=== PATIENT | female | born 1985 | race Two or more races ===

== ENCOUNTER 2016-10-18 10:54 | Emergency (ER) | payer MEDICAID ==
[2016-10-18 11:06] VITALS: RESP 16; TEMP 98.2
[2016-10-18] MEDS ORDERED: NS 1,000 ML IV ONE (11:21)
[2016-10-18] MEDS ORDERED: ONDANSETRON 4 MG/2 ML VIAL IVP ONE (11:21)
[2016-10-18 11:49] LABS: % IMMATURE GRANULYOCYTES 0.3 % (0.0-1.1); ABSOLUTE IMMATURE GRANULOCYTES 0.03 10^3/uL (0.00-0.10); ADD DIFF? NO; ADD MORPH? YES; ADD SCAN? NO; ATYPICAL LYMPHOCYTE FLAG 20 (0-99); FRAGMENT RBC FLAG 80 (0-99); HEMOGLOBIN 8.7 g/dL (12.6-16.3); LEFT SHIFT FLG 0 (0-99); LIPEMIA HEMOLYSIS FLAG 70 (0-99); MEAN CELL HEMOGLOBIN 20.1 pg (27.9-34.1); MEAN PLATELET VOLUME 11.1 fL (8.7-11.7); PLATELET CLUMPS FLAG 30 (0-99); PLATELET COUNT 333 10^3/uL (150-400); RED BLOOD CELL COUNT 4.33 10^6/uL (4.18-5.33)
[2016-10-18 11:51] LABS: COLOR PALE YELLOW; LEUKOCYTE ESTERASE,URINE NEGATIVE (NEGATIVE); NITRITE,URINE NEGATIVE (NEGATIVE)
[2016-10-18 11:52] LABS: MEAN CELL VOLUME 69.3 fL (81.5-99.8); RED CELL DISTRIBUTION WIDTH 20.6 % (11.5-15.2)
[2016-10-18 12:02] LABS: ALANINE AMINOTRANSFERASE 24 IU/L (9-52); ALBUMIN 4.3 g/dL (3.5-5.0); ALKALINE PHOSPHATASE 51 IU/L (38-126); ANION GAP 12 mEq/L (8-16); ASPARTATE AMINOTRANSFERASE 21 IU/L (14-46); BILIRUBIN,TOTAL 0.3 mg/dL (0.1-1.4); CALCIUM 9.1 mg/dL (8.5-10.4); CARBON DIOXIDE 23 mEq/l (22-31); CHLORIDE 107 mEq/L (97-110); CREATININE 0.7 mg/dL (0.6-1.0); GLOMERULAR FILTRATION RATE > 60; GLUCOSE 86 mg/dL (70-100); POTASSIUM 3.9 mEq/L (3.5-5.2); SODIUM 142 mEq/L (134-144); TOTAL PROTEIN 8.1 g/dL (6.3-8.2)
--- NOTE | 2016-10-18 12:36 | EDPHY ---
H & P Time Seen by Provider: 10/18/16 12:33 HPI/ROS: HPI: This is a pleasant 31-year-old female who presents with Chief Complaint: Nausea vomiting Location: Abdomen Quality: Nausea Duration: 2-3 weeks Signs and Symptoms: No fever, positive nausea, positive vomiting, no diarrhea, no constipation, no vaginal discharge, no vaginal bleeding, no dysuria, no chest pain, no palpitations, no dysphagia, no indigestion Timing: Intermittent Severity: Mild Context: Last menstrual period 1 month ago. She has 2 living children as had 2 C-sections as well as a bilateral tubal ligation. She states that food just does not taste well to her. And that she has been suffering from nausea. Only had 1 episode of vomiting over the last 2-3 weeks. Adamantly denies abdominal pain to me. Had 1 episode of loose stool yesterday and today. No recent antibiotic use. No recent foreign travel. Modifying Factors: Did not call a primary care provider or tried anything for the symptoms Comment: ROS: Eyes: No blurred vision Respiratory: No shortness of breath, no cough Cardiovascular: No chest pain Gastrointestinal: + nausea, + vomiting no diarrhea Genitourinary: No dysuria Extremities: No myalgias Neurologic: No weakness, no numbness Skin: No rashes Hematologic: No bruising, no bleeding MEDICAL/SURGICAL HISTORY: x 2. Social History: . Smoking Status: Never smoked Physical Exam: CONSTITUTIONAL: Extremely well-appearing adult female, awake and alert , no obvious distress HEENT: Atraumatic and normocephalic, PERRL, EOMI. Tympanic membranes clear. . Oropharynx clear, no exudate and moist pink mucosa. Airway patent. No lymphadenopathy. No meningismus. Cardiovascular: Normal S1/S2, regular rate, regular rhythm, without murmur rub or gallop. PULMONARY/CHEST: Symmetrical and nontender. Clear to auscultation bilaterally Good air movement. No accessory muscle usage. ABDOMEN: Soft, nondistended, mild nonfocal tenderness, no rebound, no guarding , no peritoneal signs, no masses or organomegaly. No CVAT. EXTREMITIES: 2/2 pulses, no deformities, no clubbing, no cyanosis or edema. NEUROLOGICAL: no focal neuro deficits. GCS 15. SKIN: Warm and dry, no erythema. no rash. Good capillary refill. Constitutional: Initial Vital Signs Temperature (C) 36.8 C 10/18/16 11:04 Heart Rate 78 10/18/16 11:04 Respiratory Rate 16 10/18/16 11:04 Blood Pressure 122/73 H 10/18/16 11:04 O2 Sat (%) 98 10/18/16 11:04 O2 Delivery Mode Room Air Allergies/Adverse Reactions: No Known Allergies Allergy (Unverified 04/16/14 17:10) Home Medications: Medication Instructions Recorded Ondansetron Odt [Zofran Odt 4 mg 4 mg PO Q4 PRN #12 tab 10/18/16 (*)] Medical Decision Making - Diagnostics Imaging Results: Imaging Impressions Abdomen Ultrasound 10/18/16 11:27 Impression: Normal study. Findings were discussed with Lorena Wei PA-C at 12:13, on 10/18/2016. ED Course/Re-evaluation: labs, UA, Urine , RUQ US< IVF, IV medications ordered urine negative Right upper quadrant ultrasound does not show any gallbladder stone sludge common bile duct diameter is normal. Labs unremarkable UA does not show infection No signs of pancreatitis, gastroparesis, cholelithiasis, cholecystitis, dehydration, electrolyte imbalance, sepsis Advised follow up with primary care for care provider in 2-3 days if symptoms persist Patient's nausea was completely resolved with Zofran. No indication for further invasive workup. Differential Diagnosis: Abdominal pain in a female including but not limited to ovarian cyst, pelvic inflammatory disease, ovarian torsion, urinary tract infection, and appendicitis. - Data Points Laboratory Results: Laboratory Results 10/18/16 11:30 10/18/16 11:30 10/18/16 10/18/16 10/18/16 11:30 11:30 11:30 WBC 8.81 10^3/uL 10^3/uL (3.80-9.50) RBC 4.33 10^6/uL 10^6/uL (4.18-5.33) Hgb 8.7 g/dL L g/dL (12.6-16.3) Hct 30.0 % L % (38.0-47.0) MCV 69.3 fL L fL (81.5-99.8) MCH 20.1 pg L pg (27.9-34.1) MCHC 29.0 g/dL L g/dL (32.4-36.7) RDW 20.6 % H % (11.5-15.2) Plt Count 333 10^3/uL 10^3/uL (150-400) MPV 11.1 fL fL (8.7-11.7) Neut % (Auto) 67.5 % % (39.3-74.2) Lymph % (Auto) 25.4 % % (15.0-45.0) [place] % (Auto) 6.1 % % (4.5-13.0) Eos % (Auto) 0.5 % L % (0.6-7.6) Baso % (Auto) 0.2 % L % (0.3-1.7) Nucleat RBC Rel Count 0.0 % % (0.0-0.2) Absolute Neuts (auto) 5.94 10^3/uL 10^3/uL (1.70-6.50) Absolute Lymphs (auto) 2.24 10^3/uL 10^3/uL (1.00-3.00) Absolute Monos (auto) 0.54 10^3/uL 10^3/uL (0.30-0.80) Absolute Eos (auto) 0.04 10^3/uL 10^3/uL (0.03-0.40) Absolute Basos (auto) 0.02 10^3/uL 10^3/uL (0.02-0.10) Absolute Nucleated RBC 0.00 10^3/uL 10^3/uL (0-0.01) Immature Gran % 0.3 % % (0.0-1.1) Immature Gran # 0.03 10^3/uL 10^3/uL (0.00-0.10) Platelet Estimate Pending Smear Review By Pending ABG Lactic Acid Sodium 142 mEq/L mEq/L (134-144) Potassium 3.9 mEq/L mEq/L (3.5-5.2) Chloride 107 mEq/L mEq/L (97-110) Carbon Dioxide 23 mEq/l mEq/l (22-31) Anion Gap 12 mEq/L mEq/L (8-16) BUN 15 mg/dL mg/dL (7-23) Creatinine 0.7 mg/dL mg/dL (0.6-1.0) Estimated GFR > 60 Glucose 86 mg/dL mg/dL (70-100) Calcium 9.1 mg/dL mg/dL (8.5-10.4) Total Bilirubin 0.3 mg/dL mg/dL (0.1-1.4) AST 21 IU/L IU/L (14-46) ALT 24 IU/L IU/L (9-52) Alkaline Phosphatase 51 IU/L IU/L (38-126) Total Protein 8.1 g/dL g/dL (6.3-8.2) Albumin 4.3 g/dL g/dL (3.5-5.0) Lipase 107 IU/L IU/L (23-300) Urine Color PALE YELLOW Urine Appearance CLEAR Urine pH 7.0 (5.0-7.5) Ur Specific [place] 1.005 (1.002-1.030) Urine Protein NEGATIVE (NEGATIVE) Urine Ketones NEGATIVE (NEGATIVE) Urine Blood NEGATIVE (NEGATIVE) Urine Nitrate NEGATIVE (NEGATIVE) Urine Bilirubin NEGATIVE (NEGATIVE) Urine Urobilinogen NEGATIVE EU EU (0.2-1.0) Ur Leukocyte Esterase NEGATIVE (NEGATIVE) Urine Glucose NEGATIVE (NEGATIVE) 10/18/16 11:30 WBC RBC Hgb Hct MCV MCH MCHC RDW Plt Count MPV Neut % (Auto) Lymph % (Auto) [place] % (Auto) Eos % (Auto) Baso % (Auto) Nucleat RBC Rel Count Absolute Neuts (auto) Absolute Lymphs (auto) Absolute Monos (auto) Absolute Eos (auto) Absolute Basos (auto) Absolute Nucleated RBC Immature Gran % Immature Gran # Platelet Estimate Smear Review By ABG Lactic Acid 0.7 mmol/L mmol/L (0.5-1.6) Sodium Potassium Chloride Carbon Dioxide Anion Gap BUN Creatinine Estimated GFR Glucose Calcium Total Bilirubin AST ALT Alkaline Phosphatase Total Protein Albumin Lipase Urine Color Urine Appearance Urine pH Ur Specific [place] Urine Protein Urine Ketones Urine Blood Urine Nitrate Urine Bilirubin Urine Urobilinogen Ur Leukocyte Esterase Urine Glucose Medications Given: Discontinued Medications Sodium Chloride (Ns) 1,000 mls @ 0 mls/hr IV EDNOW ONE; Wide Open PRN Reason: Protocol Stop: 10/18/16 11:22 Last Admin: 10/18/16 11:35 Dose: 1,000 mls Ondansetron HCl (Zofran) 4 mg IVP EDNOW ONE Stop: 10/18/16 11:22 Last Admin: 10/18/16 11:36 Dose: 4 mg Departure - Departure Disposition: Home, Routine, Self-Care Clinical Impression: Nausea alone Condition: Good Instructions: Acute Nausea and Vomiting (ED) Referrals: [facility] [Other] - 2-3 days, if not improved Prescriptions: Ondansetron Odt [Zofran Odt 4 mg (*)] 4 mg PO Q4 PRN #12 tab PRN Reason: Nausea/Vomiting, Use 1st
[2016-10-18 12:42] LABS: ELLIPTOCYTES 1+; HYPOCHROMIA 2+; KERATOCYTES 1+; MICROCYTES 2+; POLYCHROMASIA 1+
[2016-10-18 12:43] LABS: PLATELET ESTIMATE ADEQUATE (ADEQ)
[2016-10-18 12:51] VITALS: BP 100/59; PULSE 68; O2SAT 100
== END 2016-10-18 12:51 | disposition home or self-care (01) ==
DX: R11.0 Nausea (principal); E86.9 Volume depletion, unspecified
CPT/HCPCS: 96374; J2405

== ENCOUNTER 2016-12-01 06:46 | Emergency (ER) | payer MEDICAID ==
[2016-12-01 06:51] VITALS: RESP 16; TEMP 99
--- NOTE | 2016-12-01 07:32 | EDPHY ---
H & P Time Seen by Provider: 12/01/16 07:31 HPI/ROS: Chief complaint. Abdominal pain HPI. 31-year-old female left lower quadrant pain that started this morning. Vomiting x1. The pain is described as sharp left lower quadrant radiating through to her back. She notes burning with urination. She was well yesterday. It hurts to walk. No chest discomfort trouble breathing. No similar symptoms previously. No diarrhea ROS Constitutional. no fever/chills, no weakness Eyes. no problems with vision ENT. no sore throat, no nasal drainage Cardiovascular. no chest pain Respiratory. no shortness of breath, no cough Abdominal. Left lower quadrant abdominal pain with vomiting . Painful urination MS. no calf pain/swelling, no neck/back pain, no joint pain Skin. no rash Lymph. no swollen glands Neuro. no headache, no dizziness, no difficulty walking or with speech Past Medical/Surgical History: Past medical history is significant for tubal ligation Social History: nonsmoker no alcohol Smoking Status: Never smoked Physical Exam: General Appearance: Alert well-developed female mild distress vital signs significant for initial heart rate 101 Eyes: Pupils equal and round no pallor or injection. ENT, Mouth: Mucous membranes are moist. Respiratory: There are no retractions, lungs are clear to auscultation. Cardiovascular: Regular rate and rhythm. Gastrointestinal: Abdomen is soft with mild tenderness in the left lower quadrant. No masses. No organomegaly. Mild left flank pain Neurological: Awake and alert, sensory and motor exams grossly normal. Skin: Warm and dry, no rashes. Musculoskeletal: Neck is supple nontender. Extremities symmetrical, full range of motion. Psychiatric: Patient is oriented X 3, there is no agitation. Constitutional: Initial Vital Signs Temperature (C) 37.2 C 12/01/16 06:48 Heart Rate 101 H 12/01/16 06:48 Respiratory Rate 16 12/01/16 06:48 Blood Pressure 114/74 12/01/16 06:48 O2 Sat (%) 95 12/01/16 06:48 O2 Delivery Mode Room Air Allergies/Adverse Reactions: shellfish derived Allergy (Verified 12/01/16 06:47) Home Medications: Medication Instructions Recorded NK [No Known Home Meds] 12/01/16 Medical Decision Making - Diagnostics Imaging Results: Imaging Impressions Abdomen/Pelvis Ultrasound 12/01/16 07:44 Impression: Normal renal ultrasound. Findings discussed with PATRICIA ORR 12/01/2016 at 8:54. Pelvic/Renal Ultrasound 12/01/16 07:44 Impression: Normal pelvic ultrasound. Findings discussed with PATRICIA ORR 12/01/2016 at 8:54. Ultrasound of pelvis and kidney reviewed by me and discussed with Dr. Mahajan are normal Procedures: IV normal saline. Fentanyl for pain. Zofran for nausea ED Course/Re-evaluation: Re-evaluation 9:10 a.m.. Patient is stable. She and I discussed imaging and lab results. We discussed treatment plan including criteria for return importance of follow-up and further evaluation. She expresses understanding and agreement Abdomen is reexamined it is soft and nontender. No evidence for acute abdomen. Differential Diagnosis: I considered urinary tract infection, pyelonephritis, ectopic , kidney stone, ovarian torsion or ovarian cyst. The etiology of the patient's complaint is not clear as the above differential appears to be normal - Data Points Laboratory Results: Laboratory Results 12/01/16 07:20 12/01/16 07:20 12/01/16 12/01/16 12/01/16 07:20 07:20 07:20 WBC RBC Hgb Hct MCV MCH MCHC RDW Plt Count MPV Neut % (Auto) Lymph % (Auto) [place] % (Auto) Eos % (Auto) Baso % (Auto) Nucleat RBC Rel Count Absolute Neuts (auto) Absolute Lymphs (auto) Absolute Monos (auto) Absolute Eos (auto) Absolute Basos (auto) Absolute Nucleated RBC Immature Gran % Immature Gran # Platelet Estimate Hypochromasia Microcytic Cells Elliptocytes Rouleaux Smear Review By Sodium 141 mEq/L mEq/L (134-144) Potassium 4.1 mEq/L mEq/L (3.5-5.2) Chloride 107 mEq/L mEq/L (97-110) Carbon Dioxide 22 mEq/l mEq/l (22-31) Anion Gap 12 mEq/L mEq/L (8-16) BUN 15 mg/dL mg/dL (7-23) Creatinine 0.7 mg/dL mg/dL (0.6-1.0) Estimated GFR > 60 Glucose 99 mg/dL mg/dL (70-100) Calcium 9.1 mg/dL mg/dL (8.5-10.4) Beta HCG, Qual NEGATIVE Urine Color YELLOW Urine Appearance HAZY Urine pH 5.0 (5.0-7.5) Ur Specific [place] 1.027 (1.002-1.030) Urine Protein NEGATIVE (NEGATIVE) Urine Ketones NEGATIVE (NEGATIVE) Urine Blood NEGATIVE (NEGATIVE) Urine Nitrate NEGATIVE (NEGATIVE) Urine Bilirubin NEGATIVE (NEGATIVE) Urine Urobilinogen 2.0 EU H EU (0.2-1.0) Ur Leukocyte Esterase NEGATIVE (NEGATIVE) Urine RBC 1-3 /hpf /hpf (0-3) Urine WBC 1-3 /hpf /hpf (0-3) Ur Epithelial Cells TRACE /lpf /lpf (NONE-1+) Urine Mucus 4+ /lpf H /lpf (NONE-1+) Urine Glucose NEGATIVE (NEGATIVE) 12/01/16 07:20 WBC 10.33 10^3/uL H 10^3/uL (3.80-9.50) RBC 4.58 10^6/uL 10^6/uL (4.18-5.33) Hgb 8.9 g/dL L g/dL (12.6-16.3) Hct 30.9 % L % (38.0-47.0) MCV 67.5 fL L fL (81.5-99.8) MCH 19.4 pg L pg (27.9-34.1) MCHC 28.8 g/dL L g/dL (32.4-36.7) RDW 19.5 % H % (11.5-15.2) Plt Count 342 10^3/uL 10^3/uL (150-400) MPV 11.3 fL fL (8.7-11.7) Neut % (Auto) 76.6 % H % (39.3-74.2) Lymph % (Auto) 12.8 % L % (15.0-45.0) [place] % (Auto) 8.5 % % (4.5-13.0) Eos % (Auto) 1.3 % % (0.6-7.6) Baso % (Auto) 0.5 % % (0.3-1.7) Nucleat RBC Rel Count 0.0 % % (0.0-0.2) Absolute Neuts (auto) 7.92 10^3/uL H 10^3/uL (1.70-6.50) Absolute Lymphs (auto) 1.32 10^3/uL 10^3/uL (1.00-3.00) Absolute Monos (auto) 0.88 10^3/uL H 10^3/uL (0.30-0.80) Absolute Eos (auto) 0.13 10^3/uL 10^3/uL (0.03-0.40) Absolute Basos (auto) 0.05 10^3/uL 10^3/uL (0.02-0.10) Absolute Nucleated RBC 0.00 10^3/uL 10^3/uL (0-0.01) Immature Gran % 0.3 % % (0.0-1.1) Immature Gran # 0.03 10^3/uL 10^3/uL (0.00-0.10) Platelet Estimate ADEQUATE (ADEQ) Hypochromasia 2+ H Microcytic Cells 2+ H Elliptocytes 1+ H Rouleaux PRESENT H Smear Review By Pending Sodium Potassium Chloride Carbon Dioxide Anion Gap BUN Creatinine Estimated GFR Glucose Calcium Beta HCG, Qual Urine Color Urine Appearance Urine pH Ur Specific [place] Urine Protein Urine Ketones Urine Blood Urine Nitrate Urine Bilirubin Urine Urobilinogen Ur Leukocyte Esterase Urine RBC Urine WBC Ur Epithelial Cells Urine Mucus Urine Glucose Medications Given: Discontinued Medications Fentanyl (Sublimaze) 100 mcg IVP EDNOW ONE Stop: 12/01/16 07:44 Last Admin: 12/01/16 07:54 Dose: 100 mcg Sodium Chloride (Ns) 1,000 mls @ 0 mls/hr IV EDNOW ONE; Wide Open PRN Reason: Protocol Stop: 12/01/16 07:44 Last Admin: 12/01/16 07:54 Dose: 1,000 mls Ondansetron HCl (Zofran) 4 mg IVP EDNOW ONE Stop: 12/01/16 07:44 Last Admin: 12/01/16 07:54 Dose: 4 mg Departure - Departure Disposition: Home, Routine, Self-Care Clinical Impression: Abdominal pain Condition: Good Instructions: Acute Abdominal Pain (ED) Additional Instructions: Easy activity today. Ibuprofen 600 mg every 6 hours for discomfort. Hydrocodone in addition if necessary. Return for worsening pain, fever, vomiting. Recheck in 1 day if not improving Referrals: [facility] [Other] - 1 day, if not improved Stand Alone Forms: Work Excuse
[2016-12-01] MEDS ORDERED: ONDANSETRON 4 MG/2 ML VIAL IVP ONE (07:43)
[2016-12-01] MEDS ORDERED: NS 1,000 ML IV ONE (07:43)
[2016-12-01] MEDS ORDERED: fentaNYL 100 MCG/2 ML INJ IVP ONE (07:43)
[2016-12-01 07:53] LABS: % IMMATURE GRANULYOCYTES 0.3 % (0.0-1.1); ABSOLUTE IMMATURE GRANULOCYTES 0.03 10^3/uL (0.00-0.10); ADD DIFF? NO; ADD MORPH? YES; ADD SCAN? NO; ATYPICAL LYMPHOCYTE FLAG 20 (0-99); FRAGMENT RBC FLAG 60 (0-99); HEMATOCRIT 30.9 % (38.0-47.0); HEMOGLOBIN 8.9 g/dL (12.6-16.3); LEFT SHIFT FLG 0 (0-99); LIPEMIA HEMOLYSIS FLAG 70 (0-99); MEAN CELL HEMOGLOBIN 19.4 pg (27.9-34.1); MEAN PLATELET VOLUME 11.3 fL (8.7-11.7); PLATELET CLUMPS FLAG 20 (0-99); PLATELET COUNT 342 10^3/uL (150-400); RED BLOOD CELL COUNT 4.58 10^6/uL (4.18-5.33); RED CELL DISTRIBUTION WIDTH 19.5 % (11.5-15.2)
[2016-12-01 07:54] LABS: MEAN CELL HEMOGLOBIN CONCENTR. 28.8 g/dL (32.4-36.7); MEAN CELL VOLUME 67.5 fL (81.5-99.8)
[2016-12-01 08:00] LABS: ANION GAP 12 mEq/L (8-16); CALCIUM 9.1 mg/dL (8.5-10.4); CARBON DIOXIDE 22 mEq/l (22-31); CHLORIDE 107 mEq/L (97-110); CREATININE 0.7 mg/dL (0.6-1.0); GLOMERULAR FILTRATION RATE > 60; GLUCOSE 99 mg/dL (70-100); POTASSIUM 4.1 mEq/L (3.5-5.2); SODIUM 141 mEq/L (134-144)
[2016-12-01 08:03] LABS: COLOR YELLOW; LEUKOCYTE ESTERASE,URINE NEGATIVE (NEGATIVE); NITRITE,URINE NEGATIVE (NEGATIVE)
[2016-12-01 08:06] LABS: MUCUS 4+ /lpf (NONE-1+)
[2016-12-01 08:27] LABS: ELLIPTOCYTES 1+; HYPOCHROMIA 2+; MICROCYTES 2+
[2016-12-01 08:28] LABS: PLATELET ESTIMATE ADEQUATE (ADEQ); ROULEAUX PRESENT
[2016-12-01 08:54] VITALS: BP 106/59
[2016-12-01 09:31] VITALS: PULSE 79; O2SAT 97
== END 2016-12-01 09:33 | disposition home or self-care (01) ==
DX: R10.32 Left lower quadrant pain (principal); E86.9 Volume depletion, unspecified; Z98.51 Tubal ligation status
CPT/HCPCS: 96374; J2405; J3010

== ENCOUNTER 2017-08-20 04:54 | Inpatient (IN) | payer MEDICAID ==
[2017-08-20] MEDS ORDERED: NS 1,000 ML IV ONE (05:01)
--- NOTE | 2017-08-20 05:03 | EDPHY ---
H & P Stated Complaint: RLQ abd pain x1 hour Source: Patient - Personal History Current Tetanus/Diphtheria Vaccine: Unsure Current Tetanus Diphtheria and Acellular Pertussis (TDAP): Unsure - Medical/Surgical History Hx Asthma: No Hx Chronic Respiratory Disease: No Hx Diabetes: No Hx Cardiac Disease: No Hx Renal Disease: No Hx Cirrhosis: No Hx Alcoholism: No Hx HIV/AIDS: No Hx Splenectomy or Spleen Trauma: No Other PMH: PMHx: denies. PSHx: tubal ligation x 2, x2 - Social History Smoking Status: Never smoked Time Seen by Provider: 08/20/17 05:02 HPI/ROS: HPI CHIEF COMPLAINT: Sudden-onset right lower quadrant abdominal pain. HISTORY OF PRESENT ILLNESS: Patient is a 32-year-old female she is otherwise healthy, no significant medical history she presents emergency room with sudden onset right lower quadrant abdominal pain. She describes the pain as sudden onset happened an hour ago while at work. 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 She was standing developed sudden-onset right lower quadrant abdominal pain. She denies low pelvic pain or flank pain. She denies being . States her menstrual period was earlier this month. She does have a history left ovarian cyst. Additionally she had tubal ligation. She endorses nausea but no vomiting, no diarrhea, no fever, no urinary symptoms, no flank pain. She currently describes her pain as right-sided right lower quadrant 8/10. Past Medical History: No significant medical history Past Surgical History: Tubal ligation Social History: Denies daily use of drugs alcohol tobacco. Family History: Noncontributory ROS REVIEW OF SYSTEMS: A comprehensive 10 point review of systems is otherwise negative aside from elements mentioned in the history of present illness. Exam Constitutional triage nursing summary reviewed, vital signs reviewed, awake/ alert. Eyes normal conjunctivae and sclera, EOMI, PERRLA. HENT normal inspection, atraumatic, moist mucus membranes, no epistaxis, neck supple/ no meningismus, no raccoon eyes. Respiratory clear to auscultation bilaterally, normal breath sounds, no respiratory distress, no wheezing. Cardiovascular rate normal, regular rhythm, no murmur, no edema, distal pulses normal. Gastrointestinal mild tender palpation right lower quadrant, no peritoneal signs no significant adnexal tenderness on exam, no rebound, no guarding, normal bowel sounds, no distension, no pulsatile mass. Genitourinary no CVA tenderness. Musculoskeletal no midline vertebral tenderness, full range of motion, no calf swelling, no tenderness of extremities, no meningismus, good pulses, neurovascularly intact. Skin pink, warm, & dry, no rash, skin atraumatic. Neurologic awake, alert and oriented x 3, AAOx3, moves all 4 extremities equally, motor intact, sensory intact, CN II-XII intact, normal cerebellar, normal vision, normal speech. Psychiatric normal mood/affect. Heme/Lymph/Immune no lymphadenopathy. Differential diagnosis includes but is not limited to and in no particular order : Bowel obstruction, appendicitis, gallbladder disease, diverticulitis, colitis , enteritis, perforated viscus, gastritis, GERD, esophagitis, urinary tract infection, pyelonephritis, kidney stones Medical Decision Making: Plan for this patient IV establishment IV fluid bolus , IV Dilaudid 0.5 mg for pain control, 4 mg for IV Zofran for nausea, CT scan abdomen pelvis with IV contrast rule out acute appendicitis, ruptured ovarian cyst, kidney stone. Check UA. Re-evaluate. Re-evaluation: 0602AM: CT abd/pelvis: A pelvis with IV contrast shows tip inflammation of the appendix. 10 mm. No surrounding inflammatory change. Concerning for tip appendicitis. Additionally there is an involuted left ovarian cyst with free fluid in the pelvis. The patient does not have any pain on the left side. 0605AM: given concner for tip appendicitis, Consulting General Surgery, Dr. Jones, 0635: Dr. Jones to see for concern of possible tip appendicitis. 0700: Signed over to Dr. Trejo at 7am shift change follow-up disposition with Dr. Jones. [facility] Constitutional: Initial Vital Signs Temperature (C) 36.9 C 08/20/17 04:57 Heart Rate 90 08/20/17 04:57 Respiratory Rate 16 08/20/17 04:57 Blood Pressure 128/80 H 08/20/17 04:57 O2 Sat (%) 93 08/20/17 04:57 O2 Delivery Mode Room Air Allergies/Adverse Reactions: shellfish derived Allergy (Verified 12/01/16 06:47) Home Medications: Medication Instructions Recorded NK [No Known Home Meds] 08/20/17 Medical Decision Making ED Course/Re-evaluation: 0 700: The patient is signed out to me at change of shift. At time of sign out Dr. Jones is in the patient's room for evaluation. Dr. Jones exited the room and stated he was admitting the patient. He placed admission orders. Patient is aware the plan. (Ramonita Bass) - Data Points Laboratory Results: Laboratory Results 08/20/17 05:10 08/20/17 05:10 Medications Given: Acetaminophen (Tylenol) 1,000 mg PO Q8H DESTINY Stop: 02/16/18 07:29 Last Admin: 08/20/17 23:06 Dose: 1,000 mg Hydromorphone HCl (Dilaudid) 0.2 - 0.4 mg IVP Q1HR PRN PRN Reason: Pain, Breakthrough Stop: 08/30/17 07:20 Last Admin: 08/21/17 03:54 Dose: 0.4 mg Lactated Ringer's (Lr) 1,000 mls @ 100 mls/hr IV CONT DESTINY Stop: 02/16/18 07:29 Last Admin: 08/21/17 03:47 Dose: 1,000 mls Ketorolac Tromethamine (Toradol) 30 mg IVP Q6HRS DESTINY Stop: 08/25/17 11:59 Last Admin: 08/20/17 23:06 Dose: 30 mg Ondansetron HCl (Zofran) 4 mg IVP Q4HRS PRN PRN Reason: *Nausea &/or Vomiting Stop: 08/21/17 07:20 Last Admin: 08/20/17 12:38 Dose: 4 mg Discontinued Medications Diphenhydramine HCl (Benadryl Injection) 25 mg IVP ONCE ONE Stop: 08/20/17 08:15 Last Admin: 08/20/17 08:18 Dose: 25 mg Hydromorphone HCl (Dilaudid) 0.5 mg IVP EDNOW ONE Stop: 08/20/17 05:07 Last Admin: 08/20/17 05:11 Dose: 0.5 mg Sodium Chloride (Ns) 1,000 mls @ 0 mls/hr IV EDNOW ONE; Wide Open PRN Reason: Protocol Stop: 08/20/17 05:02 Last Admin: 08/20/17 05:11 Dose: 1,000 mls Ondansetron HCl (Zofran) 4 mg IVP EDNOW ONE Stop: 08/20/17 05:07 Last Admin: 08/20/17 05:11 Dose: 4 mg Departure - Departure Disposition: [facility] Inpatient Acute Clinical Impression: Abdominal pain Qualifiers: Abdominal location: right lower quadrant Qualified Code(s): R10.31 - Right lower quadrant pain Anemia Qualifiers: Anemia type: other cause Other causes of anemia: other cause, not classified Qualified Code(s): D64.89 - Other specified anemias Condition: Fair
[2017-08-20] MEDS ORDERED: ONDANSETRON 4 MG/2 ML VIAL IVP ONE (05:06)
[2017-08-20] MEDS ORDERED: HYDROmorphONE/DILAUDID 2 MG/ML INJ IVP ONE (05:06)
[2017-08-20] MEDS ORDERED: IOPAMIDOL (ISOVUE-300) 100 ML BTL ONE (05:39)
[2017-08-20 06:09] LABS: PLATELET COUNT 270 10^3/uL (150-400)
[2017-08-20] MEDS: LR 1,000 ML IV SCH ×2 (07:36→16:58)
[2017-08-20] MEDS: ACETAMINOPHEN 325 MG TAB PO SCH ×3 (07:44→23:06)
--- NOTE | 2017-08-20 07:53 | GHP ---
[f rep st] PREOP HISTORY AND PHYSICAL DATE OF ADMISSION: 08/20/2017 ADMITTING DIAGNOSIS: Abdominal pain of uncertain etiology. Evaluate for appendicitis. HISTORY: The patient is a 32-year-old female. She felt well when she woke at 2:30 this morning to g o to work. At work, she reported she was standing, talking to a colleague when she had the sudden at tack of a sharp stabbing abdominal pain. She did not have any nausea or vomiting. No fevers or chil ls. She is not hungry at this point. Her last menstrual period was on the through the . Today is the . She has had 2 tubal ligations. Her reproductive history reveals she had a m iscarriage that required extraction of placenta. She then had a premature vaginal . She had a with a tubal ligation. She had a subsequent and has a with a 2nd tubal ligation. There is no history of a recent upper respiratory tract infection. She has had diarrhea in the past week. There is no history of travel or antibiotic use in the last 6 months. There is no history of inflammatory bowel disease. SOCIAL HISTORY: She is not a smoker. She drinks on a very rare basis. ALLERGIES: She has no known drug allergies. MEDICATIONS: The only medication she takes is vitamin B12. There is no history of rheumatic fever, tuberculosis, hepatitis, or transfusions. REVIEW OF SYSTEMS: She has occasional stress incontinence. No limits on her activities. PHYSICAL EXAMINATION: GENERAL: She is awake, alert, pleasant, and sits up easily when I ask her to for examination. She is alert and oriented. NEUROLOGIC: Does not reveal any focal or lateralizing findings. LYMPHATIC: Examination shows no evidence of cervical, supraclavicular, axillary, or ingui nal lymphadenopathy. NECK: Shows no carotid bruits or thyroid enlargement. LUNGS: Clear to auscult ation. CARDIAC: Shows S1, S2 to be normal with normal split of S2 without murmurs, rubs, or gallops . ABDOMEN: Tender with cough at McBurney's point. She has hypoactive bowel sounds. Obturator sign is positive. Psoas sign is negative. To palpation, she is tender in the left upper quadrant 1, lef t mid abdomen 1, left lower quadrant 1. Epigastrium 1, periumbilical area 1, suprapubic area 2, righ t upper quadrant 2, right mid abdomen 2, right lower quadrant 4. LABORATORY DATA: Her white count is 8.4 with 59% neutrophils. Her chemistries reveal a beta HCG whi ch is negative, but otherwise unremarkable. Her urine has 5-10 white cells per high-power field and leukocyte esterase 1+ positive. Her CT formal report is not available, but by verbal reports to Dr. [place], showed a dilated tip of the appendix without periappendiceal stranding. On my examination, I agree it is mildly dilated, but I do not see any periappendiceal stranding. I do not see any fecalith. IMPRESSION: Abdominal pain of uncertain etiology. The sudden onset, the lack of left shift and leuk ocytosis tend to argue against appendicitis. Other possible diagnoses would be a left ovarian cyst a nd fluid in the left pelvis consistent with cyst rupture. I do not detect distinct mesenteric adenit is. The possibility of infectious diarrhea remains. I will get a urine culture because of the white cells in the urine and leukocyte esterase positivity. I will admit to the hospital for an observati onal status. I will not give her antibiotics at this time but we plan to re-examine her this afterno on after she has a followup white blood cell count. /[id number]/MODL
[2017-08-20] MEDS: HYDROmorphONE/DILAUDID 1 MG/ML INJ IVP PRN ×5 (10:13→22:10)
[2017-08-20] MEDS: KETOROLAC 15 MG/1 ML SDV IVP SCH ×3 (11:27→23:06)
[2017-08-20] MEDS: ONDANSETRON 4 MG/2 ML VIAL IVP PRN (12:38)
[2017-08-20 13:52] LABS: PLATELET COUNT 235 10^3/uL (150-400)
--- NOTE | 2017-08-20 15:12 | SOAPPROG ---
SOAP Progress Note Assessment/Plan: 08/20/17 15:09 Assessment: Pain continues, WBC continues to be unremarkable and VSS. She now reports a 25 pound weight loss in past month and is anemic Plan: TSH, CA 125 and Hospitalist consult to aid in DDx Objective: Vital Signs Temp Pulse Resp BP Pulse Ox 37.1 C 75 16 106/69 96 08/20/17 11:19 08/20/17 11:19 08/20/17 11:19 08/20/17 11:19 08/20/17 11:19 Laboratory Results 08/20/17 13:35 ICD10 Worksheet Patient Problems: Problems Problem Status Onset Abdominal pain Acute Anemia Acute
--- NOTE | 2017-08-20 21:03 | PDHOSCONS ---
History and Physical - Chief Complaint weight loss, anemia - History of Present Illness We have been asked to provide consultation for this patient for weight loss, RLQ abdominal pain, and anemia. She was recently admitted by Surgery for RLQ abd pain and concern for appendicitis. The pt reports that she was going about her normal day and abruptly she had RLQ abd pain which caused her to cry and bend over. She subsequently presented to the ER. She has not had nausea or anorexia. She did not have periumbilical pain or any abd pain discomfort leading up to this event. She has not had a fever. she was noted not to have Leukocytosis on admission or on repeat. She has not had any urinary sx's. She had an abd CT which showed findings for questionable appendicitis. It also showed left ovarian cysts but nothing on the right. Her pain is about the same since admission. She is NPO. She has not had a fever. She was noted to have about a 25 lb weight loss in the past month. Upon further questioning, she has been having a non intentional weight loss for several months. She eats small amount of food at at time. She does not feel full early. She is having normal caliber stools. She denies hematochezia. She has not had nausea or emesis. She does not have a hx of diabetes. She has not been drinking more fluid than usual. She does not have a hx of Thyroid disease. She is not on weigh loss supplements. She has an unremarkable Hcg on admission. She does report a hx of bilateral ovarian cysts with intermittent rupture with several episodes. She feels that her pain at this time is more severe than any cyst rupture episode. She is noted to have a Hgb of 7.3 which is dropped since yesterday. She reports a long hx of anemia since she was a child. She denies any extensive w/u. She has been told that she is iron deficient and has had multiple recommendations for blood transfusion with the last recommendation in 2012. She has never had a blood transfusion. She does not have a hx of Thalassemia. She does not have a hx of celiac disease. She denies any family hx of cancer. She had a CA-125 which was unremarkable today. She has bacteriuria but no urinary sx's. PMHx: anemia iron deficiency stress incontinence PSHx: 2 tubal ligations, Soc: no tobacco, engaged, 2 children, social ETOH, moved from [place] one year ago FmHx: no hx of cancer History Information - Allergies/Home Medication List Allergies/Adverse Reactions: shellfish derived Allergy (Verified 12/01/16 06:47) Home Medications: NK [No Known Home Meds] 08/20/17 [Last Taken Unknown] I have personally reviewed and updated: medical history, social history - Social History Smoking Status: Never smoked Review of Systems Review of Systems: ROS: 10pt was reviewed & negative except for what was stated in HPI & below Physical Exam Physical Exam: Temp Pulse Resp BP Pulse Ox 36.0 C 70 17 109/65 95 08/20/17 20:00 08/20/17 20:00 08/20/17 20:00 08/20/17 20:00 08/20/17 20:00 Constitutional: no apparent distress Eyes: PERRL, EOMI Ears, Nose, Mouth, Throat: moist mucous membranes, hearing normal Cardiovascular: regular rate and rhythym, No edema Respiratory: no respiratory distress, no rales or rhonchi, clear to auscultation Gastrointestinal: normoactive bowel sounds, tenderness (TTP RLQ), No guarding, No rebound, No distension Skin: warm Musculoskeletal: full muscle strength, no muscle tenderness Neurologic: AAOx3 Psychiatric: interacting appropriately, not anxious, not encephalopathic Lymph, Heme, Immunologic: No petechiae Lab Data & Imaging Review 08/20/17 13:35 08/20/17 05:10 WBC 5.66 10^3/uL (3.80-9.50) 08/20/17 13:35 RBC 3.94 10^6/uL (4.18-5.33) L 08/20/17 13:35 Hgb 7.3 g/dL (12.6-16.3) L 08/20/17 13:35 Hct 25.6 % (38.0-47.0) L 08/20/17 13:35 MCV 65.0 fL (81.5-99.8) L 08/20/17 13:35 MCH 18.5 pg (27.9-34.1) L 08/20/17 13:35 MCHC 28.5 g/dL (32.4-36.7) L 08/20/17 13:35 RDW 21.2 % (11.5-15.2) H 08/20/17 13:35 Plt Count 235 10^3/uL (150-400) 08/20/17 13:35 MPV TNP 08/20/17 13:35 Neut % (Auto) 50.5 % (39.3-74.2) 08/20/17 13:35 Lymph % (Auto) 36.7 % (15.0-45.0) 08/20/17 13:35 [place] % (Auto) 10.5 % (4.5-13.0) 08/20/17 13:35 Eos % (Auto) 1.6 % (0.6-7.6) 08/20/17 13:35 Baso % (Auto) 0.5 % (0.3-1.7) 08/20/17 13:35 Nucleat RBC Rel Count 0.0 % (0.0-0.2) 08/20/17 13:35 Absolute Neuts (auto) 2.85 10^3/uL (1.70-6.50) 08/20/17 13:35 Absolute Lymphs (auto) 2.07 10^3/uL (1.00-3.00) 08/20/17 13:35 Absolute Monos (auto) 0.59 10^3/uL (0.30-0.80) 08/20/17 13:35 Absolute Eos (auto) 0.09 10^3/uL (0.03-0.40) 08/20/17 13:35 Absolute Basos (auto) 0.03 10^3/uL (0.02-0.10) 08/20/17 13:35 Absolute Nucleated RBC 0.00 10^3/uL (0-0.01) 08/20/17 13:35 Immature Gran % 0.2 % (0.0-1.1) 08/20/17 13:35 Immature Gran # 0.01 10^3/uL (0.00-0.10) 08/20/17 13:35 Platelet Estimate ADEQUATE (ADEQ) 08/20/17 13:35 Hypochromasia 1+ H 08/20/17 05:10 Microcytic Cells 2+ H 08/20/17 05:10 Tear Drop Cells 1+ H 08/20/17 13:35 Echinocytes 1+ H 08/20/17 13:35 Elliptocytes 1+ H 08/20/17 05:10 VBG Lactic Acid 0.7 mmol/L (0.7-2.1) 08/20/17 05:10 Sodium 143 mEq/L (135-145) 08/20/17 05:10 Potassium 3.8 mEq/L (3.3-5.0) 08/20/17 05:10 Chloride 106 mEq/L (97-110) 08/20/17 05:10 Carbon Dioxide 22 mEq/l (22-31) 08/20/17 05:10 Anion Gap 15 mEq/L (8-16) 08/20/17 05:10 BUN 12 mg/dL (7-23) 08/20/17 05:10 Creatinine 0.7 mg/dL (0.6-1.0) 08/20/17 05:10 Estimated GFR > 60 08/20/17 05:10 Glucose 95 mg/dL (70-100) 08/20/17 05:10 Calcium 9.1 mg/dL (8.5-10.4) 08/20/17 05:10 Total Bilirubin 0.5 mg/dL (0.1-1.4) 08/20/17 05:10 Conjugated Bilirubin 0.4 mg/dL (0.0-0.5) 08/20/17 05:10 Unconjugated Bilirubin 0.1 mg/dL (0.0-1.1) 08/20/17 05:10 AST 23 IU/L (14-46) 08/20/17 05:10 ALT 26 IU/L (9-52) 08/20/17 05:10 Alkaline Phosphatase 52 IU/L (38-126) 08/20/17 05:10 Total Protein 7.6 g/dL (6.3-8.2) 08/20/17 05:10 Albumin 4.2 g/dL (3.5-5.0) 08/20/17 05:10 Prealbumin 18.0 mg/dL (17.6-36.0) 08/20/17 05:10 Lipase 61 IU/L (23-300) 08/20/17 05:10 CA 125 Antigen < 5.5 U/mL (0.0-35.0) 08/20/17 05:10 TSH 4.100 uIU/mL (0.465-4.680) 08/20/17 05:10 Beta HCG, Qual NEGATIVE 08/20/17 05:10 Urine Color PALE YELLOW 08/20/17 06:00 Urine Appearance CLEAR 08/20/17 06:00 Urine pH 6.0 (5.0-7.5) 08/20/17 06:00 Ur Specific [place] 1.018 (1.002-1.030) 08/20/17 06:00 Urine Protein NEGATIVE (NEGATIVE) 08/20/17 06:00 Urine Ketones NEGATIVE (NEGATIVE) 08/20/17 06:00 Urine Blood NEGATIVE (NEGATIVE) 08/20/17 06:00 Urine Nitrate NEGATIVE (NEGATIVE) 08/20/17 06:00 Urine Bilirubin NEGATIVE (NEGATIVE) 08/20/17 06:00 Urine Urobilinogen NEGATIVE EU (0.2-1.0) 08/20/17 06:00 Ur Leukocyte Esterase 1+ (NEGATIVE) H 08/20/17 06:00 Urine RBC NONE SEEN /hpf (0-3) 08/20/17 06:00 Urine WBC 5-10 /hpf (0-3) H 08/20/17 06:00 Ur Epithelial Cells TRACE /lpf (NONE-1+) 08/20/17 06:00 Urine Bacteria 3+ /hpf (NONE SEEN) H 08/20/17 06:00 Urine Mucus TRACE /lpf (NONE-1+) 08/20/17 06:00 Urine Glucose NEGATIVE (NEGATIVE) 08/20/17 06:00 Assessment & Plan Assessment: #RLQ abd pain #Weight Loss, acute to subacute #Anemia with microcytosis, long standing #Hx of Ruptured ovarian cysts with possible new rupture. Will be best seen by US #Imaging concerning for possible appendicitis in a patient with no nausea, anorexia, leukocytosis, or fever Plan: -pelvic ultrasound to r/o ovarian cyst rupture +/- with bleed, pelvic pathology -anemia w/u -iron studies -occult blood. -transfuse PRN if she is agreeable to it -check for Thyroid disease, diabetes. -further reccs pending clinical course and w/u -pending w/u consider colonoscopy thank you for this consultation, we will follow along
[2017-08-21] MEDS: HYDROmorphONE/DILAUDID 1 MG/ML INJ IVP PRN ×7 (00:42→20:51)
[2017-08-21] MEDS: LR 1,000 ML IV SCH ×2 (03:47→17:49)
[2017-08-21] MEDS: KETOROLAC 15 MG/1 ML SDV IVP SCH ×4 (05:30→23:08)
[2017-08-21 06:34] LABS: PLATELET COUNT 216 10^3/uL (150-400)
[2017-08-21] MEDS: ACETAMINOPHEN 325 MG TAB PO SCH ×3 (07:46→23:08)
--- NOTE | 2017-08-21 07:56 | SOAPPROG ---
SOAP Progress Note Assessment/Plan: 08/20/17 15:09 Assessment: Pain continues, WBC continues to be unremarkable and VSS. She now reports a 25 pound weight loss in past month and is anemic Plan: TSH, CA 125 and Hospitalist consult to aid in DDx 08/21/17 07:52 PAD#1 Assessment: Pain continues. CA125 nl, CXR unremarkable, PreAlbumin normal, Ultra sound has no other new findings, Dr. Parisi's input appreciated; TSH - two values on chart - one normal and one elevated - will check third Must presume pain due to odd presentation of appendicitis Plan: Exploratory laparoscopy with appendectomy today Subjective: I'm still having pain Objective: Vital Signs Temp Pulse Resp BP Pulse Ox 36.7 C 76 16 102/68 95 08/21/17 03:38 08/21/17 03:38 08/21/17 03:38 08/21/17 03:38 08/21/17 03:38 Laboratory Results 08/21/17 05:50 08/20/17 08/21/17 08/22/17 05:59 05:59 05:59 Intake Total 1100 Balance 1100 - Time Spent With Patient Time Spent With Patient: 15 Physical Exam - Physical Exam General Appearance: WD/WN, alert, mild distress Respiratory: lungs clear, normal breath sounds Cardiac/Chest: regular rate, rhythm Abdomen: other (Tender with cough and palpation in RLQ but not acute abdomen, hypoactive bowel sounds) Pelvic Exam: deferred Rectal: deferred Back: Normal inspection Skin: normal color, warm/dry Extremities: normal range of motion Neuro/Psych: no motor/sensory deficits, alert, normal mood/affect, oriented x 3 ICD10 Worksheet Patient Problems: Problems Problem Status Onset Abdominal pain Acute Anemia Acute
[2017-08-21] MEDS ORDERED: BUPIVACAINE 0.25% 30 ML SDV ONE (09:59)
[2017-08-21] MEDS ORDERED: ONDANSETRON 4 MG/2 ML VIAL ONE ×2 (10:00→10:35)
[2017-08-21] MEDS ORDERED: HEPARIN 1000 UNIT/1 ML MDV ONE ×2 (10:00→10:01)
[2017-08-21] MEDS ORDERED: ceFAZolin 1 GM/5 ML SYR ONE (10:02)
[2017-08-21] MEDS: ONDANSETRON 4 MG/2 ML VIAL IVP PRN (10:02)
[2017-08-21] MEDS ORDERED: HEPARIN 5,000 UNIT/0.5 ML INJ ONE ×2 (10:03→10:05)
[2017-08-21] MEDS ORDERED: MIDAZOLAM 2 MG/2 ML VIAL IVP ONE (10:10)
--- NOTE | 2017-08-21 10:10 | PDANEPAE ---
ANE History of Present Illness acute appendicitis ANE Past Medical History - Cardiovascular History Hx Hypertension: No Hx Arrhythmias: No Hx Chest Pain: No Hx Coronary Artery / Peripheral Vascular Disease: No Hx CHF / Valvular Disease: No Hx Palpitations: No - Pulmonary History Hx COPD: No Hx Asthma/Reactive Airway Disease: No Hx Recent Upper Respiratory Infection: No Hx Oxygen in Use at Home: No Hx Sleep Apnea: No Sleep Apnea Screening Result - Last Documented: Negative - Endocrine History Hx Diabetes: No Hypothyroid: No Hyperthyroid: No Obesity: no - Renal History Hx Renal Disorders: No - Liver History Hx Hepatic Disorders: No - Neurological & Psychiatric Hx Hx Neurological and Psychiatric Disorders: No - Cancer History Hx Cancer: No - Other Health History Other Health History: anemic ANE Review of Systems Review of systems is: negative Review of Systems: - Exercise capacity Exercise capacity: >=4 METS ANE Patient History - Allergies Allergies/Adverse Reactions: shellfish derived Allergy (Verified 12/01/16 06:47) - Home Medications Home Medications: NK [No Known Home Meds] 08/20/17 [Last Taken Unknown] - NPO status NPO Status: no food or drink >8 hours NPO Since - Liquids (Date): 08/21/17 NPO Since - Liquids (Time): 00:00 NPO Since - Solids (Date): 08/21/17 NPO Since - Solids (Time): 00:00 - Anes Hx Anes Hx: no prior problems - Smoking Hx Smoking Status: Never smoked - Alcohol Use Alcohol Use: Rarely - Family Anes Hx Family Anes Hx: none ANE Labs/Vital Signs - Labs Result Diagrams: 08/21/17 05:50 08/20/17 05:10 - Vital Signs Vital Signs: reviewed preoperatively; see RN documention for details Blood Pressure: 103/72 Heart Rate: 79 Respiratory Rate: 16 O2 Sat (%): 97 Height: 167.64 cm Weight: 74.843 kg ANE Physical Exam - Airway Neck exam: FROM Mallampati Score: Class 1 Mouth exam: normal dental/mouth exam - Pulmonary Pulmonary: no respiratory distress - Cardiovascular Cardiovascular: regular rate and rhythym - ASA Status ASA Status: II ANE Anesthesia Plan Anesthesia Plan: general endotracheal anesthesia
[2017-08-21] MEDS ORDERED: HYDROmorphONE/DILAUDID 1 MG/ML INJ ONE (10:14)
[2017-08-21] MEDS ORDERED: CEFAZOLIN 2 GM/DEXTROSE/100 ML BAG IV ONE (10:32)
[2017-08-21] MEDS ORDERED: PROPOFOL 200 MG/20 ML VIAL ONE (10:35)
[2017-08-21] MEDS ORDERED: ROCURONIUM 50 MG/5 ML VIAL ONE (10:35)
[2017-08-21] MEDS ORDERED: KETOROLAC 30 MG/1 ML SDV ONE (10:35)
[2017-08-21] MEDS ORDERED: LIDOCAINE 2% 5 ML SDV ONE (10:35)
[2017-08-21] MEDS ORDERED: DEXAMETHASONE 4 MG/ML VIAL ONE (10:35)
[2017-08-21] MEDS ORDERED: fentaNYL 100 MCG/2 ML INJ ONE ×2 (10:35→12:18)
[2017-08-21] MEDS ORDERED: SUGAMMADEX SODIUM 200 MG/2 ML VIAL IVP ONE (10:35)
[2017-08-21] MEDS ORDERED: PHENYLEPHRINE HCL 100 MCG/ML SYR ONE (10:59)
[2017-08-21] MEDS ORDERED: cefOXitin SODIUM 2 GM in NS 100 ML IV ONE (11:00)
[2017-08-21] MEDS ORDERED: ALBUTEROL 3 ML DEYVIAL IH PRN (12:13)
[2017-08-21] MEDS ORDERED: NALOXONE HCL 0.4 MG/ML INJ IVP PRN (12:13)
[2017-08-21] MEDS ORDERED: oxyCODONE IR 5 MG TAB PO PRN (12:13)
[2017-08-21] MEDS ORDERED: HYDROCODONE/APAP 5/325 TAB PO PRN (12:13)
[2017-08-21] MEDS ORDERED: ACETAMINOPHEN 500 MG TAB PO PRN (12:13)
[2017-08-21] MEDS ORDERED: ONDANSETRON 4 MG/2 ML VIAL IVP PRN ×2 (12:13→13:56)
[2017-08-21] MEDS ORDERED: PROMETHAZINE HCL 25 MG/ML INJ IVP PRN (12:13)
[2017-08-21] MEDS ORDERED: fentaNYL 100 MCG/2 ML INJ IVP PRN (12:13)
[2017-08-21] MEDS ORDERED: HYDROmorphONE/DILAUDID 1 MG/ML INJ IVP PRN (12:13)
--- NOTE | 2017-08-21 12:14 | POSTANESTH ---
Post Anesthetic Evaluation Cardiovascular Status: Normal, Stable Respiratory Status: Normal, Stable Level of Consciousness/Mental Status: Can Participate in Eval Pain Control: Adequate, Prn Tx Ordered Nausea/Vomiting Control: Adequate, Prn Tx Ordered Complications Possibly Related to Anesthesia: None Noted
--- NOTE | 2017-08-21 12:14 | POSTOPPROG ---
Post Op Note Date of Operation: 08/21/17 Surgeon: Donis Jones Anesthesia: GET(General Endotracheal) Pre-op Diagnosis: abdominal pain, appendicitis by CT, weight loss, anemia Post-op Diagnosis: uncomplicated appendicitis Indication: abdominal pain, appendicitis by CT, weight loss, anemia Procedure: Laparoscopic appendectomy with fluid collection for cytology Findings: uncomplicated appendicitis Inf/Abcess present in the surg proc area at time of surgery?: No EBL: Minimal Total fluids administered: 700 Complications: none Specimen(s): appendix, peritoneal fluid for cytology
--- NOTE | 2017-08-21 12:42 | GOP ---
[f rep st] OPERATIVE REPORT DATE OF OPERATION: 08/21/2017 SURGEON: Donis Jones MD ANESTHESIA: General endotracheal. PREOPERATIVE DIAGNOSIS: 1. Abdominal pain. 2. Appendicitis by CT. 3. Weight loss. 4. Anemia. POSTOPERATIVE DIAGNOSIS: Uncomplicated appendicitis. PROCEDURE PERFORMED: Laparoscopic appendectomy with fluid collection for cytology. FINDINGS: Uncomplicated appendicitis. SPECIMENS: Appendix and peritoneal fluid for cytology. ESTIMATED BLOOD LOSS: Minimal. INDICATIONS: 1. Abdominal pain. 2. Appendicitis by CT. 3. Weight loss. 4. Anemia. DESCRIPTION OF PROCEDURE: The patient was placed on the operating room table in the supine position. After induction of adequate general endotracheal anesthesia, the abdomen is carefully prepped and draped. A surgical time-out was carried out and agreed to by all members of the operative team. A curvilinear incision was planned at the umbilicus. A small transverse incision was planned at the mid point of her prior scar and in the left lower quadrant (avoiding the tattoo). The skin was incised at all 3 sites and the incision is deepened with Bovie electrocautery. Blunt dissection was carried out at the umbilicus to expose the anterior rectus sheath bilaterally. The rectus sheath was elevated between Allises and incised in the midline. A pursestring of #0 PDS is placed. The peritoneum is entered. An 11-12 mm disposable Angel trocar was positioned. Intra-abdominal insufflation was carried out to 15 mmHg. The 5 mm left lower quadrant and a 5 mm suprapubic ports were placed. There is some fluid in the pelvis. Because of the weight loss and anemia, possibility of malignancy has been raised. The fluid is aspirated for cytology. It is heparinized and sent as a specimen. It did not look purulent. There were adhesions to the anterior abdominal wall, which were now taken down with the Harmonic scalpel. The cecum is mobilized again using the Harmonic scalpel. The appendix is identified and the mesoappendix was divided down to its base on the appendix with the Harmonic scalpel. A single application of an Endo-JULITO 35 mm stapler was used to remove the appendix, taking a small cuff of cecum. The specimen was placed in EndoCatch bag and delivered. Hemostasis is excellent. Pneumoperitoneum was re-established. Photographic documentation of both ovaries was undertaken. They looked grossly normal, as is uterus. Where the tubal ligations were performed before can be identified. The small bowel was run for a distance of greater than 3 feet. There is no mesenteric adenitis identified. There is no evidence of a Meckel diverticulum. Grossly, I do not see other tumor or growth in the peritoneal space. The liver is unremarkable, as is the gallbladder. Irrigation with heparin and Ancef-containing irrigant is carried out. Ports removed under direct vision. An additional inverted simple suture of #0 PDS is placed in the midline of the infraumbilical fascial defect; this is tied. The pursestring is now tied. The subcutaneous tissue is well irrigated with heparin and Ancef-containing irrigant. The skin is closed with inverted simple sutures of #4-0 Monocryl. Mastisol and Steri-Strips were placed. Band- Aids were positioned. The patient is transferred to recovery in stable and satisfactory condition. TOTAL FLUIDS ADMINISTERED: 700 cc. /[id number]/MODL MTDD
--- NOTE | 2017-08-21 15:14 | ASMTCASEMG ---
Living Arrangements What is your living Answers: Alone arrangement? Who do you live with? Type Of Residence What kind of residence do Answers: Apartment you live in? Discharge Plan Comments Coordination Status Comments Notes: Pt is a 32 y/o female admitted for abdominal pain. Pt had her appendix removed today. Anticipate that pt will d/c without any needs. No therapies ordered at this time. CM available for changes. Plan: Independent Date Signed: 08/21/2017 03:14 PM Electronically Signed By:SINCERE Ngo
[2017-08-21] MEDS ORDERED: SENNOSIDES 1 TAB PO PRN (15:20)
--- NOTE | 2017-08-21 19:26 | HOSPPROG ---
Hospitalist Progress Note Assessment/Plan: Subjective Follow-up on iron deficiency anemia. Patient states she has had a long history of iron deficiency anemia. She does describe classic features of [place] including chewing of ice and craving of dirt but does not eat dirt. She had a successful appendectomy done earlier today. She has not had any bowel movements as of yet. Objective Vital signs as detailed below Physical exam General-patient awake alert conversant no acute distress she does appear pale Heart-regular rate and rhythm no murmurs Lungs-Clear to auscultation with normal respiratory effort Abdomen-soft nontender nondistended she does have a surgical scars which appear clean with mild amount of blood normal bowel sounds -no Song catheter in place Skin-pale Labs as detailed below and reviewed Assessment and plan Anemia-microcytic. This appears to be iron deficiency anemia. There was schistocytes noted on her differential however bilirubin levels are normal also have a lower suspicion for hemolytic anemia. She does not state heavy menstrual losses stating that her menstrual cycle typically last approximately 3 days. She does eat red meat. Hemoccults have been ordered and if these are positive I recommend consulting with Gastroenterology for upper endoscopy and colonoscopy otherwise I think that we should go ahead and start iron supplementation. I have started ferrous sulfate at 325 mg twice a day along with MiraLax and Metamucil to minimize the risk of constipation. [facility] helpful to ensure her iron levels and hemoglobin levels are rising with iron supplementation otherwise additional investigation may be necessary as I shared with the patient. Appendicitis-patient is now status post appendectomy Elevated TSH-rather labile TSH going from 4 to 17. I will recheck this again tomorrow morning with the free T4 for reassessment. Considering the lability we may want to just consider having this rechecked as an outpatient after she recovers from her appendectomy. DVT prophylaxis-consider starting tomorrow depending on her repeat hemoglobin and mobility. Disposition-anticipate she would be able to return home independently after hospital discharge. Objective: Vital Signs Temp Pulse Resp BP Pulse Ox 37.2 C 76 16 108/66 95 08/21/17 16:17 08/21/17 16:17 08/21/17 16:17 08/21/17 16:17 08/21/17 16:17 06/24/18 06/25/18 06/26/18 05:59 05:59 05:59 Output Total 1 Balance -1 ICD10 Worksheet Patient Problems: Problems Problem Status Onset Abdominal pain Acute Anemia Acute
[2017-08-21] MEDS: FERROUS SULFATE 325 MG TAB PO SCH (20:18)
[2017-08-22] MEDS: HYDROmorphONE/DILAUDID 1 MG/ML INJ IVP PRN ×2 (00:56→03:13)
[2017-08-22] MEDS: KETOROLAC 15 MG/1 ML SDV IVP SCH (05:08)
[2017-08-22 05:47] LABS: PLATELET COUNT 233 10^3/uL (150-400)
[2017-08-22] MEDS: FERROUS SULFATE 325 MG TAB PO SCH (07:50)
[2017-08-22] MEDS: ACETAMINOPHEN 325 MG TAB PO SCH (07:56)
[2017-08-22] MEDS ORDERED: ACETAMINOPHEN 500 MG TAB PO SCH (08:00)
--- NOTE | 2017-08-22 08:36 | PDMN ---
Medical Necessity Medical necessity: Change to IP, as of 08/21/17, per MD; los >2 mn for ongoing management of iron deficient anemia & elevated TSH s/p appendectomy POD #0; admit for further monitoring & follow-up labs; per progress note & order 08/21/17
[2017-08-22 08:55] VITALS: BP 99/60
[2017-08-22] MEDS ORDERED: ONDANSETRON DISINTEGRATING 4 MG TAB PO PRN (09:00)
[2017-08-22] MEDS ORDERED: oxyCODONE IR 5 MG TAB PO PRN (09:00)
[2017-08-22] MEDS ORDERED: PSYLLIUM METAMUCIL 1 PKT PO SCH (09:00)
[2017-08-22] MEDS ORDERED: POLYETHYLENE GLYCOL 3350 17 GM PKT PO SCH (09:00)
--- NOTE | 2017-08-22 09:48 | HOSPPROG ---
Hospitalist Progress Note Assessment/Plan: The patient is doing well with mild abdominal ache but eating and having bowel function, no fever sxs and no fevers, stable vitals. No other new sxs skin warm dry good color looks very relaxed resps normal lungs clear wounds ok S/P appy FE deficinecy anemia, severe, most likely menstrual She is stable for DC I reviewed with her in detail the diff dx of her anemia and iron defic, and the potential medical complications of ongoing anemia as well as the ongoing symptoms of fatigue and exertional dyspnea she is having. She will take the Fe supplements we are prescribing and I encouraged her to take vitamin C with that as well. 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 I strongly recommended she make an appointment in the near future with a primary MD to follow her Fe levels and blood counts. If she does not resolve her anemia and iron deficiency, she will need to either go on control or have another cause for her deficiency found such as another source of bleeding or a malabsorption problem. She understands all of this discussion and I have answered her questions. Objective: Vital Signs Temp Pulse Resp BP Pulse Ox 37.0 C 74 16 99/60 L 96 08/22/17 08:00 08/22/17 08:00 08/22/17 08:00 08/22/17 08:00 08/22/17 08:00 Laboratory Results 08/22/17 04:58 08/21/17 08/22/17 08/23/17 06:59 06:59 06:59 Intake Total 500 Output Total 1 Balance 499 ICD10 Worksheet Patient Problems: Problems Problem Status Onset Abdominal pain Acute Anemia Acute
== END 2017-08-22 10:15 | disposition home or self-care (01) | DRG 234 ==
LOC: F3E 10:01 → OBSVTOIN 08-21 17:38
PROVIDERS: ADMIT Surgery; ATTEND Surgery
PROC: 0DTJ4ZZ Resection of Appendix, Percutaneous Endoscopic Approach (ICD-10-PCS; principal; 2017-08-21 10:00)
DX: K35.80 Unspecified acute appendicitis (principal); R63.4 Abnormal weight loss; D50.9 Iron deficiency anemia, unspecified
CPT/HCPCS: 82607-90; 84134-90; 86304-90; 96374; G0378; J0690; J0694; J1100; J1170; J1200; J1644; J1885; J2250; J2370; J2405; J2704; J3010; Q9967

== ENCOUNTER 2017-08-26 19:17 | Emergency (ER) | payer MEDICAID ==
--- NOTE | 2017-08-26 19:29 | EDPHY ---
H & P Stated Complaint: APPY SX TUES/"FEVER" AND L PELVIS PAIN Time Seen by Provider: 08/26/17 19:21 - Personal History LMP (Females 10-55): 15-21 Days Ago Current Tetanus Diphtheria and Acellular Pertussis (TDAP): Yes - Medical/Surgical History Hx Asthma: No Hx Chronic Respiratory Disease: No Hx Diabetes: No Hx Cardiac Disease: No Hx Renal Disease: No Hx Cirrhosis: No Hx Alcoholism: No Hx HIV/AIDS: No Hx Splenectomy or Spleen Trauma: No Other PMH: PMHx: denies. PSHx: tubal ligation x 2, x2, APPY - Social History Smoking Status: Never smoked Constitutional: Initial Vital Signs Temperature (C) 36.7 C 08/26/17 19:19 Heart Rate 95 08/26/17 19:19 Respiratory Rate 16 08/26/17 19:19 Blood Pressure 116/79 08/26/17 19:19 O2 Sat (%) 97 08/26/17 19:19 O2 Delivery Mode Room Air Allergies/Adverse Reactions: shellfish derived Allergy (Verified 12/01/16 06:47) Home Medications: Medication Instructions Recorded Acetaminophen [Tylenol 325mg (*)] 1,000 mg PO Q8H 10 Days tab 08/21/17 Ferrous Sulfate [Ferrous Sulf 325 325 mg PO BID 30 Days tab 08/21/17 MG (*)] HYDROmorphone HCL [Dilaudid 2 mg 2 - 4 mg PO Q4 PRN #15 tab 08/21/17 (*)] Ibuprofen [Motrin (*)] 200 mg PO Q6H 10 Days tab 08/21/17 Medical Decision Making - Diagnostics Imaging Results: Imaging Impressions Abdomen/Pelvis CT 08/26/17 19:51 Impression: Status post appendectomy, without evidence for free intraperitoneal air or abscess. Constipation. No evidence for hydronephrosis or ureteral calculus. Results called and discussed with Andres Solis M.D., on August 26, 2017 at 2121. Attention: This CT examination is specifically designed to evaluate patients who are clinically suspected of having acute obstructive uropathy. This examination does not use radiographic contrast, and as such, provides only a limited evaluation of the abdomen, pelvis, and retroperitoneum. If there is further clinical suspicion for pathological conditions other than obstructive uropathy, a complete CT evaluation of the abdomen and pelvis utilizing intravenous, oral, and rectal contrast should be considered. ED Course/Re-evaluation: CHIEF COMPLAINT: Lower left abdominal pain and back pain, post op appendectomy HISTORY OF PRESENT ILLNESS: The patient is a 32 y/o female with a history of appendectomy Monday, 4 days ago, complaining of lower left quadrant pain, extending to his back. She had surgery here on Monday and was released. Since then she has felt like she has a slight fever, but has not taken her temperature. Today, she sat down and starting urinating and immediately started to experience pain in her left lower abdomen which extends into her back. She denies any other associated symptoms. She denies history of kidney stones. REVIEW OF SYSTEMS: A 10 point review of systems was performed and is negative with the exception of the elements mentioned in the history of present illness. PHYSICAL EXAM: HR, BP, O2 Sat, RR. Temp noted General Appearance: Alert, well hydrated, appropriate, appears uncomfortable. Head: Atraumatic without scalp tenderness or obvious injury Eyes: Pupils equal, round, reactive to light and accommodation, EOMI, no trauma , no injection. Throat: There is no erythema or exudates, no lesions, normal tonsils, mucus membranes moist. Neck: Supple, nontender, no lymphadenopathy. Respiratory: No retractions, no distress, no wheezes, and no accessory muscle use. Lungs are clear to auscultation bilaterally. Cardiovascular: Regular rate and rhythm, no murmurs, rubs, or gallops. Gastrointestinal: Abdomen is soft, nontender, non-distended, no masses, no rebound, no guarding, no peritoneal signs. Musculoskeletal: Normal active ROM of all extremities, atraumatic. Neurological: Alert, appropriate, and interactive. Skin: No rashes, good turgor, no nodules on palpation. Past medical history: Denies Past surgical history: Tubal ligation, appendectomy, 2x cesarian section Family history: Non-contributory Social history: Mother to 2 children, lives in [place], unemployed DIAGNOSTICS/PROCEDURES/CRITICAL CARE TIME: Study: CT of the abdomen Indication: LLQ pain, post appy Results: CT scan of the body parts was obtained. The results of the study are normal. The study was read by the radiologist, Dr. Cohn. I viewed the images myself on the PACS system. DIFFERENTIAL DIAGNOSIS: The differential diagnosis for this patient's pain included but was not limited to kidney stone, surgical complication, hernia, ovarian torsion, ovarian cyst, and post-operative infection. MEDICAL DECISION MAKING: The patient presents with lower left quadrant pain with sudden onset while urinating. She recently had her appendix removed. On exam, she is not tender to palpation and has no other findings. Plan for urinalysis, CBC, basic metabolic panel, ABG, lactic acid, and abdominal CT. 1mg hydromorphone, 30mg ketorolac, and 4mg zofran administered for symptom management. 9:30 PM - The CT shows constipation but no other concerning findings. The urinalysis is not concerning. Plan for discharge with instruction to take mag citrate as the constipation is likely due to pain medication use. She agrees to this course of action. - Data Points Laboratory Results: Laboratory Results 08/26/17 19:30 08/26/17 19:30 08/26/17 08/26/17 08/26/17 21:10 20:11 20:11 WBC RBC Hgb Hct MCV MCH MCHC RDW Plt Count MPV Neut % (Auto) Lymph % (Auto) [place] % (Auto) Eos % (Auto) Baso % (Auto) Nucleat RBC Rel Count Absolute Neuts (auto) Absolute Lymphs (auto) Absolute Monos (auto) Absolute Eos (auto) Absolute Basos (auto) Absolute Nucleated RBC Immature Gran % Immature Gran # Platelet Estimate Hypochromasia Microcytic Cells Elliptocytes Smear Review By Puncture Site Cancelled Patient Temperature Cancelled pCO2 Cancelled pO2 Cancelled Total CO2 Cancelled ABG pH Cancelled ABG PO2/FiO2 Ratio Cancelled ABG HCO3 Cancelled ABG O2 Sat (Calculated) Cancelled ABG O2 Saturation Cancelled ABG Base Excess Cancelled ABG Hemoglobin Cancelled ABG Lactic Acid Cancelled Total O2 Concentration Cancelled O2 Concentration % Cancelled POC Sodium Cancelled POC Potassium Cancelled Respiration Rate Cancelled Actual Respiration Rate Cancelled Set Respiration Rate Cancelled SIMV Cancelled Assist Control Cancelled Vent Rate Cancelled Inspiratory Time Cancelled Expiratory Pressure Cancelled Tidal Volume Cancelled End Tidal CO2 Cancelled PEEP Cancelled Inspiratory Pressure Cancelled Peak Inspir Pressure Cancelled Pressure Support Cancelled Pressure Control Cancelled CPAP Cancelled BiPAP Cancelled Mode BiPAP Cancelled Inspir/Expir Ratio Cancelled Sodium Potassium Chloride Carbon Dioxide Anion Gap BUN Creatinine Estimated GFR Glucose Calcium Ionized Calcium Cancelled Urine Color YELLOW Urine Appearance CLEAR Urine pH 5.0 (5.0-7.5) Ur Specific [place] 1.020 (1.002-1.030) Urine Protein NEGATIVE (NEGATIVE) Urine Ketones NEGATIVE (NEGATIVE) Urine Blood NEGATIVE (NEGATIVE) Urine Nitrate NEGATIVE (NEGATIVE) Urine Bilirubin NEGATIVE (NEGATIVE) Urine Urobilinogen NEGATIVE EU EU (0.2-1.0) Ur Leukocyte Esterase NEGATIVE (NEGATIVE) Urine RBC NONE SEEN /hpf /hpf (0-3) Urine WBC 1-3 /hpf /hpf (0-3) Ur Epithelial Cells TRACE /lpf /lpf (NONE-1+) Urine Bacteria 1+ /hpf H /hpf (NONE SEEN) Urine Mucus TRACE /lpf /lpf (NONE-1+) Urine Glucose NEGATIVE (NEGATIVE) 08/26/17 08/26/17 19:30 19:30 WBC 11.11 10^3/uL H 10^3/uL (3.80-9.50) RBC 4.63 10^6/uL 10^6/uL (4.18-5.33) Hgb 8.5 g/dL L g/dL (12.6-16.3) Hct 29.5 % L % (38.0-47.0) MCV 63.7 fL L fL (81.5-99.8) MCH 18.4 pg L pg (27.9-34.1) MCHC 28.8 g/dL L g/dL (32.4-36.7) RDW 23.5 % H % (11.5-15.2) Plt Count 257 10^3/uL 10^3/uL (150-400) MPV TNP Neut % (Auto) 68.6 % % (39.3-74.2) Lymph % (Auto) 20.7 % % (15.0-45.0) Stephens % (Auto) 8.6 % % (4.5-13.0) Eos % (Auto) 1.4 % % (0.6-7.6) Baso % (Auto) 0.3 % % (0.3-1.7) Nucleat RBC Rel Count 0.0 % % (0.0-0.2) Absolute Neuts (auto) 7.62 10^3/uL H 10^3/uL (1.70-6.50) Absolute Lymphs (auto) 2.30 10^3/uL 10^3/uL (1.00-3.00) Absolute Monos (auto) 0.96 10^3/uL H 10^3/uL (0.30-0.80) Absolute Eos (auto) 0.16 10^3/uL 10^3/uL (0.03-0.40) Absolute Basos (auto) 0.03 10^3/uL 10^3/uL (0.02-0.10) Absolute Nucleated RBC 0.00 10^3/uL 10^3/uL (0-0.01) Immature Gran % 0.4 % % (0.0-1.1) Immature Gran # 0.04 10^3/uL 10^3/uL (0.00-0.10) Platelet Estimate ADEQUATE (ADEQ) Hypochromasia 1+ H Microcytic Cells 2+ H Elliptocytes 1+ H Smear Review By Pending Puncture Site Patient Temperature pCO2 pO2 Total CO2 ABG pH ABG PO2/FiO2 Ratio ABG HCO3 ABG O2 Sat (Calculated) ABG O2 Saturation ABG Base Excess ABG Hemoglobin ABG Lactic Acid Total O2 Concentration O2 Concentration % POC Sodium POC Potassium Respiration Rate Actual Respiration Rate Set Respiration Rate SIMV Assist Control Vent Rate Inspiratory Time Expiratory Pressure Tidal Volume End Tidal CO2 PEEP Inspiratory Pressure Peak Inspir Pressure Pressure Support Pressure Control CPAP BiPAP Mode BiPAP Inspir/Expir Ratio Sodium 137 mEq/L mEq/L (135-145) Potassium 4.1 mEq/L mEq/L (3.3-5.0) Chloride 107 mEq/L mEq/L (97-110) Carbon Dioxide 21 mEq/l L mEq/l (22-31) Anion Gap 9 mEq/L mEq/L (8-16) BUN 17 mg/dL mg/dL (7-23) Creatinine 0.7 mg/dL mg/dL (0.6-1.0) Estimated GFR > 60 Glucose 96 mg/dL mg/dL (70-100) Calcium 8.9 mg/dL mg/dL (8.5-10.4) Ionized Calcium Urine Color Urine Appearance Urine pH Ur Specific [place] Urine Protein Urine Ketones Urine Blood Urine Nitrate Urine Bilirubin Urine Urobilinogen Ur Leukocyte Esterase Urine RBC Urine WBC Ur Epithelial Cells Urine Bacteria Urine Mucus Urine Glucose Medications Given: Discontinued Medications Hydromorphone HCl (Dilaudid) 1 mg IVP EDNOW ONE Stop: 08/26/17 19:51 Last Admin: 08/26/17 20:12 Dose: 1 mg Ketorolac Tromethamine (Toradol) 30 mg IVP EDNOW ONE Stop: 08/26/17 19:51 Last Admin: 08/26/17 20:09 Dose: 30 mg Ondansetron HCl (Zofran) 4 mg IVP EDNOW ONE Stop: 08/26/17 19:51 Last Admin: 08/26/17 20:10 Dose: 4 mg Point of Care Test Results: Chemistry 08/26/17 20:11 POC Sodium Cancelled POC Potassium Cancelled Blood Gas/Lactic Acid-Arterial 08/26/17 20:11 Tidal Volume Cancelled Departure - Departure Disposition: Home, Routine, Self-Care Clinical Impression: Constipation Qualifiers: Constipation type: unspecified constipation type Qualified Code(s): K59.00 - Constipation, unspecified Condition: Good Instructions: Constipation (ED) Additional Instructions: 1. Take mag citrate as directed. 2. Follow up with your primary care provider for continued symptoms. 3. Return to the emergency department for blood in your stool, or other worsening of condition. Referrals: NONE *PRIMARY CARE P,. [Primary Care Provider] - As per Instructions [facility],. [Clinic] - As per Instructions Bennie Kaur MD [Medical Doctor] - As per Instructions Report Scribed for: Andres Solis Report Scribed by: Adelia Hickey Date of Report: 08/26/17 Time of Report: 20:39
[2017-08-26] MEDS ORDERED: ONDANSETRON 4 MG/2 ML VIAL IVP ONE (19:50)
[2017-08-26] MEDS ORDERED: HYDROmorphONE/DILAUDID 2 MG/ML INJ IVP ONE (19:50)
[2017-08-26] MEDS ORDERED: KETOROLAC 30 MG/1 ML SDV IVP ONE (19:50)
[2017-08-26 20:09] LABS: PLATELET COUNT 257 10^3/uL (150-400)
[2017-08-26 21:42] VITALS: BP 105/52
== END 2017-08-26 21:42 | disposition home or self-care (01) ==
DX: K59.00 Constipation, unspecified (principal); Z90.49 Acquired absence of other specified parts of digestive tract
CPT/HCPCS: 96374; J1170; J1885; J2405

== ENCOUNTER 2017-12-27 07:54 | Emergency (ER) | payer MEDICAID, OTHER ==
--- NOTE | 2017-12-27 08:02 | EDPHY ---
H & P Time Seen by Provider: 12/27/17 08:02 HPI/ROS: CHIEF COMPLAINT: Nausea vomiting diarrhea for 1 week HISTORY OF PRESENT ILLNESS: Patient started having symptoms last week. She did go to [place] to visit her brother "for 3 hours" but that was on after her symptoms had already begun. She presents now feeling dehydrated and having persistent vomiting and diarrhea for the last week. Not associated with abdominal pain, she does have some right back pain and states she has had 1 episode of hematuria. No dysuria or urinary frequency. Symptoms moderate to severe and associated with feeling weak and no energy. No melena, no coffee-ground emesis or hematemesis. REVIEW OF SYSTEMS: Eye: no change in vision ENT: no sore throat Cardiac: no chest pain or syncope Pulmonary: no cough or SOB Abdomen: HPI Musculoskeletal: HPI and mild headache Skin: no rash Neuro: Mild headache Constitutional: Subjective fever and chills : no urinary symptoms A comprehensive 10 point review of systems is otherwise negative aside from elements mentioned in the history of present illness. PAST MEDICAL HISTORY: Chart reviewed from her hospitalization in July of this year includes appendectomy on 08/21/2017, recent weight loss, anemia Social history: [place] patient General Appearance: Alert and conversant, cooperative. Eyes: No scleral icterus. Pupils equal reactive extraocular motion intact. ENT, Mouth: Slightly dry mucous membranes, normal tympanic membranes. Respiratory: Normal respiratory effort, breath sounds equal, lungs are clear to auscultation. Cardiovascular: Regular rate and rhythm. Gastrointestinal: Abdomen is soft and non tender. Neurological: Alert, face symmetric, normal motor and sensory in extremities. Skin: Warm and dry, no rashes. Musculoskeletal: No peripheral edema. Psychiatric: Not agitated. Emergency Department course/MDM: I think her travel to [place] would be likely unrelated as her symptoms started before the travel. Zofran 4 mg IV, normal saline 1 L IV, urinalysis. Differential considered including but not limited to gastroenteritis, typhoid, GI bleed, renal colic, pyelonephritis. 944: Patient feels better, no further vomiting. She feels stable and wants to go home which I think is reasonable. Normal electrolytes and no hematuria or UTI. She is warned follow-up for her anemia and weight loss, which she has not done since her hospitalization earlier this year. Smoking Status: Never smoked Constitutional: Initial Vital Signs Temperature (C) 37 C 12/27/17 07:58 Heart Rate 66 12/27/17 07:58 Respiratory Rate 16 12/27/17 07:58 Blood Pressure 120/71 12/27/17 07:58 O2 Sat (%) 97 12/27/17 07:58 O2 Delivery Mode Room Air Allergies/Adverse Reactions: shellfish derived Allergy (Verified 12/27/17 07:57) Home Medications: Medication Instructions Recorded Ondansetron Odt [Zofran Odt] 4 mg PO Q4PRN #6 tab 12/27/17 Medical Decision Making - Data Points Laboratory Results: Laboratory Results 12/27/17 08:15 12/27/17 08:15 12/27/17 12/27/17 12/27/17 09:00 08:15 08:15 WBC RBC Hgb Hct MCV MCH MCHC RDW Plt Count MPV Neut % (Auto) Lymph % (Auto) [place] % (Auto) Eos % (Auto) Baso % (Auto) Nucleat RBC Rel Count Absolute Neuts (auto) Absolute Lymphs (auto) Absolute Monos (auto) Absolute Eos (auto) Absolute Basos (auto) Absolute Nucleated RBC Immature Gran % Immature Gran # Sodium 142 mEq/L mEq/L (135-145) Potassium 3.7 mEq/L mEq/L (3.3-5.0) Chloride 104 mEq/L mEq/L (97-110) Carbon Dioxide 26 mEq/l mEq/l (22-31) Anion Gap 12 mEq/L mEq/L (6-14) BUN 15 mg/dL mg/dL (7-23) Creatinine 0.7 mg/dL mg/dL (0.6-1.0) Estimated GFR > 60 Glucose 95 mg/dL mg/dL (70-100) Calcium 9.5 mg/dL mg/dL (8.5-10.4) Beta HCG, Qual NEGATIVE Urine Color YELLOW Urine Appearance CLEAR Urine pH 5.0 (5.0-7.5) Ur Specific [place] 1.027 (1.002-1.030) Urine Protein NEGATIVE (NEGATIVE) Urine Ketones NEGATIVE (NEGATIVE) Urine Blood NEGATIVE (NEGATIVE) Urine Nitrate NEGATIVE (NEGATIVE) Urine Bilirubin NEGATIVE (NEGATIVE) Urine Urobilinogen NEGATIVE EU EU (0.2-1.0) Ur Leukocyte Esterase NEGATIVE (NEGATIVE) Urine Glucose NEGATIVE (NEGATIVE) 12/27/17 08:15 WBC 8.63 10^3/uL 10^3/uL (3.80-9.50) RBC 4.69 10^6/uL 10^6/uL (4.18-5.33) Hgb 10.4 g/dL L g/dL (12.6-16.3) Hct 34.8 % L % (38.0-47.0) MCV 74.2 fL L fL (81.5-99.8) MCH 22.2 pg L pg (27.9-34.1) MCHC 29.9 g/dL L g/dL (32.4-36.7) RDW 19.5 % H % (11.5-15.2) Plt Count 317 10^3/uL 10^3/uL (150-400) MPV 11.2 fL fL (8.7-11.7) Neut % (Auto) 66.4 % % (39.3-74.2) Lymph % (Auto) 26.3 % % (15.0-45.0) [place] % (Auto) 6.0 % % (4.5-13.0) Eos % (Auto) 0.9 % % (0.6-7.6) Baso % (Auto) 0.2 % L % (0.3-1.7) Nucleat RBC Rel Count 0.0 % % (0.0-0.2) Absolute Neuts (auto) 5.72 10^3/uL 10^3/uL (1.70-6.50) Absolute Lymphs (auto) 2.27 10^3/uL 10^3/uL (1.00-3.00) Absolute Monos (auto) 0.52 10^3/uL 10^3/uL (0.30-0.80) Absolute Eos (auto) 0.08 10^3/uL 10^3/uL (0.03-0.40) Absolute Basos (auto) 0.02 10^3/uL 10^3/uL (0.02-0.10) Absolute Nucleated RBC 0.00 10^3/uL 10^3/uL (0-0.01) Immature Gran % 0.2 % % (0.0-1.1) Immature Gran # 0.02 10^3/uL 10^3/uL (0.00-0.10) Sodium Potassium Chloride Carbon Dioxide Anion Gap BUN Creatinine Estimated GFR Glucose Calcium Beta HCG, Qual Urine Color Urine Appearance Urine pH Ur Specific [place] Urine Protein Urine Ketones Urine Blood Urine Nitrate Urine Bilirubin Urine Urobilinogen Ur Leukocyte Esterase Urine Glucose Medications Given: Discontinued Medications Fentanyl (Sublimaze) 50 mcg IVP EDNOW ONE Stop: 12/27/17 08:24 Last Admin: 12/27/17 08:26 Dose: 50 mcg Sodium Chloride (Ns) 1,000 mls @ 0 mls/hr IV EDNOW ONE; Wide Open PRN Reason: Protocol Stop: 12/27/17 08:09 Last Admin: 12/27/17 08:21 Dose: 1,000 mls Sodium Chloride (Ns) 1,000 mls @ 0 mls/hr IV EDNOW ONE; Wide Open PRN Reason: Protocol Stop: 12/27/17 09:09 Last Admin: 12/27/17 10:22 Dose: 1,000 mls Influenza Virus Vaccine Quadrival (Flulaval Quad [id number] (6mo+)) 0.5 ml IM .ONCE ONE Stop: 12/27/17 10:17 Last Admin: 12/27/17 10:21 Dose: 0.5 ml Ondansetron HCl (Zofran) 4 mg IVP EDNOW ONE Stop: 12/27/17 08:09 Last Admin: 12/27/17 08:21 Dose: 4 mg Departure - Departure Disposition: Home, Routine, Self-Care Clinical Impression: Dehydration Nausea and vomiting Qualifiers: Vomiting type: unspecified Vomiting Intractability: non-intractable Qualified Code(s): R11.2 - Nausea with vomiting, unspecified Condition: Good Instructions: Dehydration (ED), Acute Nausea and Vomiting (ED) Referrals: [facility] ,. [Edm Groups for Call Sched] - As per Instructions Stand Alone Forms: Work Excuse Prescriptions: Ondansetron Odt [Zofran Odt] 4 mg PO Q4PRN #6 tab
[2017-12-27] MEDS ORDERED: ONDANSETRON 4 MG/2 ML VIAL ONE (08:08)
[2017-12-27] MEDS ORDERED: NS 1,000 ML IV ONE ×2 (08:08→09:08)
[2017-12-27] MEDS ORDERED: ONDANSETRON 4 MG/2 ML VIAL IVP ONE (08:08)
[2017-12-27] MEDS ORDERED: fentaNYL 100 MCG/2 ML INJ IVP ONE (08:23)
[2017-12-27 08:37] LABS: PLATELET COUNT 317 10^3/uL (150-400)
[2017-12-27 10:28] VITALS: BP 115/78
== END 2017-12-27 10:32 | disposition home or self-care (01) ==
DX: R11.2 Nausea with vomiting, unspecified (principal); E86.0 Dehydration; Z23 Encounter for immunization
CPT/HCPCS: 96374; G0008; J2405; J3010

== ENCOUNTER 2018-02-18 09:23 | Emergency (ER) | payer OTHER ==
[2018-02-18] MEDS ORDERED: NS 1,000 ML IV ONE (09:39)
[2018-02-18] MEDS ORDERED: ONDANSETRON 4 MG/2 ML VIAL IVP ONE (09:39)
[2018-02-18 09:53] LABS: PLATELET COUNT 288 10^3/uL (150-400)
--- NOTE | 2018-02-18 09:54 | EDPHY ---
H & P Stated Complaint: N/V, CORONEL, back pain Time Seen by Provider: 02/18/18 09:31 HPI/ROS: CHIEF COMPLAINT: Nausea vomiting, headache, back pain x4 days HISTORY OF PRESENT ILLNESS: 32-year-old female complaining of 4 days of nausea, vomiting with 2 days of non thunderclap holocephalic headache, lightheadedness when she stands up too quickly, right-sided back pain, no bowel movement or passage of gas in 2 days. No abdominal distension. Mode no fever no chills. No urinary abnormality. No dysuria hematuria increased frequency. REVIEW OF SYSTEMS: 10 systems reviewed and negative with the exception of the elements mentioned in the history of present illness PAST MEDICAL & SURGICAL HISTORY: Appendectomy. Tubal ligation x2 SOCIAL HISTORY: Nonsmoker. No alcohol or drug use PHYSICAL EXAM (Prior to examination, patient consented to physical exam, hands were washed and my usual and customary physical exam procedures followed) 1) GENERAL: Well-developed, well-nourished, alert and oriented. Appears to be in no acute distress. 2) HEAD: Normocephalic, atraumatic 3) HEENT: Pupils equal, round, reactive to light bilaterally. Sclera anicteric. Nasopharynx, oropharynx, clear, no lesions. Dry mucous membranes. Ears bilaterally with normal tympanic membranes. No signs of otitis media otitis externa 4) NECK: Full range of motion, no meningeal signs. 5) LUNGS: Clear auscultation bilaterally, no wheezes, no rhonchi, no retractions. 6) HEART: Regular rate and rhythm, no murmur, no heave, no gallop. 7) ABDOMEN: No guarding, tender to palpation all quadrants. No distension. Normal bowel sounds. no rebound, no focal tenderness, negative McBurney's, negative Townsend's, negative Rovsing's, negative peritoneal sign, 8) MUSCULOSKELETAL: Moving all extremities, no focal areas of tenderness, no obvious trauma. No peripheral edema or discoloration. 9) BACK: No CVA tenderness, no midline vertebral tenderness, no fluctuance, no step-off, no obvious trauma, no visual or palpable abnormality. 10) SKIN: No rash, no petechiae. 11) Psychiatric: Patient is oriented X 3, there is no agitation. 12) NEURO: Awake, alert, and oriented to person, place and time. Answers questions appropriately. There were no obvious focal neurologic abnormalities. No cerebellar dysfunction. Cranial nerves 2 through to 12 intact. Normal steady gait. Upper and lower extremities bilaterally with strength 5 / 5, reflexes 2+. DIFFERENTIAL DIAGNOSIS: My differential diagnosis includes, but is not limited to, acute appendicitis, acute cholecystitis, bowel obstruction, acute pancreatitis, ovarian torsion, ectopic , gastritis and urinary tract infection. The patient understands that this diagnosis is provisional and can never be 100% accurate. This is a partial list of diagnoses considered. These considerations are based on history, physical exam, past history and reassessment. - Personal History Current Tetanus/Diphtheria Vaccine: Yes Current Tetanus Diphtheria and Acellular Pertussis (TDAP): Yes - Medical/Surgical History Hx Asthma: No Hx Chronic Respiratory Disease: No Hx Diabetes: No Hx Cardiac Disease: No Hx Renal Disease: No Hx Cirrhosis: No Hx Alcoholism: No Hx HIV/AIDS: No Hx Splenectomy or Spleen Trauma: No Other PMH: PMHx: denies. PSHx: tubal ligation x 2, x2, APPY - Social History Smoking Status: Never smoked Constitutional: Initial Vital Signs Temperature (C) 36.9 C 02/18/18 09:28 Heart Rate 77 02/18/18 09:28 Respiratory Rate 16 02/18/18 09:28 Blood Pressure 121/73 H 02/18/18 09:28 O2 Sat (%) 97 02/18/18 09:28 O2 Delivery Mode Room Air Allergies/Adverse Reactions: shellfish derived Allergy (Verified 02/18/18 09:28) Home Medications: Medication Instructions Recorded Ondansetron Odt [Zofran Odt] 4 mg PO Q4PRN PRN #10 tab 02/18/18 Medical Decision Making - Diagnostics Imaging Results: Imaging Impressions Abdomen CT 02/18/18 10:01 Impression: 1. Possible mild periportal edema within the liver. 2. No evidence of bowel obstruction or abscess. Findings discussed with Drea HENDRICKS at 11:35 hour, 02/18/2018. Images reviewed myself ED Course/Re-evaluation: 12:40 p.m.: Re-evaluation, patient resting comfortably. Reviewed the patient her laboratory studies. CT imaging was performed to evaluate for possible bowel obstruction. No evidence of bowel obstruction or acute surgical abdominal pathology on CT imaging. She requested GI cocktail to settle her stomach which is given to her. She is able tolerate oral intake. I Re- examined her abdomen which is nontender. Mild pyuria bacteriuria noted on urinalysis. She has had no urinary complaints. Will hold on antibiotics. Urine will be cultured. She feels comfortable being discharged. Care of patient under supervision of secondary supervising physician Dr Sampson with whom I discussed case. - Data Points Laboratory Results: Laboratory Results 02/18/18 09:40 02/18/18 09:40 02/18/18 02/18/18 02/18/18 09:45 09:40 09:40 WBC RBC Hgb Hct MCV MCH MCHC RDW Plt Count MPV Neut % (Auto) Lymph % (Auto) [place] % (Auto) Eos % (Auto) Baso % (Auto) Nucleat RBC Rel Count Absolute Neuts (auto) Absolute Lymphs (auto) Absolute Monos (auto) Absolute Eos (auto) Absolute Basos (auto) Absolute Nucleated RBC Immature Gran % Immature Gran # Sodium 139 mEq/L mEq/L (135-145) Potassium 3.6 mEq/L mEq/L (3.5-5.2) Chloride 108 mEq/L mEq/L (97-110) Carbon Dioxide 22 mEq/l mEq/l (22-31) Anion Gap 9 mEq/L mEq/L (6-14) BUN 14 mg/dL mg/dL (7-23) Creatinine 0.7 mg/dL mg/dL (0.6-1.0) Estimated GFR > 60 Glucose 94 mg/dL mg/dL (70-100) Calcium 8.8 mg/dL mg/dL (8.5-10.4) Total Bilirubin 0.3 mg/dL mg/dL (0.1-1.4) Conjugated Bilirubin 0.2 mg/dL mg/dL (0.0-0.5) Unconjugated Bilirubin 0.1 mg/dL mg/dL (0.0-1.1) AST 18 IU/L IU/L (14-46) ALT 16 IU/L IU/L (9-52) Alkaline Phosphatase 58 IU/L IU/L (38-126) Total Protein 7.7 g/dL g/dL (6.3-8.2) Albumin 4.4 g/dL g/dL (3.5-5.0) Lipase 85 IU/L IU/L (23-300) Beta HCG, Qual NEGATIVE Urine Color BREANNA Urine Appearance HAZY Urine pH 5.0 (5.0-7.5) Ur Specific [place] 1.031 H (1.002-1.030) Urine Protein NEGATIVE (NEGATIVE) Urine Ketones TRACE H (NEGATIVE) Urine Blood NEGATIVE (NEGATIVE) Urine Nitrate NEGATIVE (NEGATIVE) Urine Bilirubin NEGATIVE (NEGATIVE) Urine Urobilinogen 2.0 EU H EU (0.2-1.0) Ur Leukocyte Esterase TRACE H (NEGATIVE) Urine RBC 1-3 /hpf /hpf (0-3) Urine WBC 10-15 /hpf H /hpf (0-3) Ur Epithelial Cells TRACE /lpf /lpf (NONE-1+) Urine Bacteria TRACE /hpf H /hpf (NONE SEEN) Urine Mucus 4+ /lpf H /lpf (NONE-1+) Urine Sperm PRESENT /hpf H /hpf (NONE SEEN) Urine Glucose NEGATIVE (NEGATIVE) 02/18/18 09:40 WBC 7.69 10^3/uL 10^3/uL (3.80-9.50) RBC 4.53 10^6/uL 10^6/uL (4.18-5.33) Hgb 10.9 g/dL L g/dL (12.6-16.3) Hct 35.2 % L % (38.0-47.0) MCV 77.7 fL L fL (81.5-99.8) MCH 24.1 pg L pg (27.9-34.1) MCHC 31.0 g/dL L g/dL (32.4-36.7) RDW 20.5 % H % (11.5-15.2) Plt Count 288 10^3/uL 10^3/uL (150-400) MPV 11.5 fL fL (8.7-11.7) Neut % (Auto) 68.7 % % (39.3-74.2) Lymph % (Auto) 23.4 % % (15.0-45.0) [place] % (Auto) 7.0 % % (4.5-13.0) Eos % (Auto) 0.3 % L % (0.6-7.6) Baso % (Auto) 0.3 % % (0.3-1.7) Nucleat RBC Rel Count 0.0 % % (0.0-0.2) Absolute Neuts (auto) 5.29 10^3/uL 10^3/uL (1.70-6.50) Absolute Lymphs (auto) 1.80 10^3/uL 10^3/uL (1.00-3.00) Absolute Monos (auto) 0.54 10^3/uL 10^3/uL (0.30-0.80) Absolute Eos (auto) 0.02 10^3/uL L 10^3/uL (0.03-0.40) Absolute Basos (auto) 0.02 10^3/uL 10^3/uL (0.02-0.10) Absolute Nucleated RBC 0.00 10^3/uL 10^3/uL (0-0.01) Immature Gran % 0.3 % % (0.0-1.1) Immature Gran # 0.02 10^3/uL 10^3/uL (0.00-0.10) Sodium Potassium Chloride Carbon Dioxide Anion Gap BUN Creatinine Estimated GFR Glucose Calcium Total Bilirubin Conjugated Bilirubin Unconjugated Bilirubin AST ALT Alkaline Phosphatase Total Protein Albumin Lipase Beta HCG, Qual Urine Color Urine Appearance Urine pH Ur Specific [place] Urine Protein Urine Ketones Urine Blood Urine Nitrate Urine Bilirubin Urine Urobilinogen Ur Leukocyte Esterase Urine RBC Urine WBC Ur Epithelial Cells Urine Bacteria Urine Mucus Urine Sperm Urine Glucose Medications Given: Discontinued Medications Al Hydroxide/Mg Hydroxide (Maalox Susp) 30 ml PO ONCE ONE Stop: 02/18/18 12:33 Last Admin: 02/18/18 12:35 Dose: 30 ml Hyoscyamine Sulfate (Levsin, Hyomax-Sl) 0.25 mg PO ONCE ONE Stop: 02/18/18 12:33 Last Admin: 02/18/18 12:35 Dose: 0.25 mg Sodium Chloride (Ns) 1,000 mls @ 0 mls/hr IV EDNOW ONE; Wide Open PRN Reason: Protocol Stop: 02/18/18 09:40 Last Admin: 02/18/18 09:44 Dose: 1,000 mls Ketorolac Tromethamine (Toradol) 15 mg IVP EDNOW ONE Stop: 02/18/18 10:13 Last Admin: 02/18/18 10:14 Dose: 15 mg Lidocaine (Lidocaine 2% Viscous) 15 ml PO ONCE ONE Stop: 02/18/18 12:33 Last Admin: 02/18/18 12:35 Dose: 15 ml Ondansetron HCl (Zofran) 4 mg IVP EDNOW ONE Stop: 02/18/18 09:40 Last Admin: 02/18/18 09:44 Dose: 4 mg Departure - Departure Disposition: Home, Routine, Self-Care Clinical Impression: Volume depletion Nausea & vomiting Qualifiers: Vomiting type: unspecified Vomiting Intractability: non-intractable Qualified Code(s): R11.2 - Nausea with vomiting, unspecified Condition: Good Instructions: Acute Nausea and Vomiting (ED) Additional Instructions: Seek immediate medical attention if you develop new or worsening symptoms, if you develop fevers, chills, inability to tolerate oral intake or any other symptoms that concerns you. Referrals: [facility],. [Clinic] - 2-3 days, call for appt. Stand Alone Forms: Work Excuse Prescriptions: Ondansetron Odt [Zofran Odt] 4 mg PO Q4PRN PRN #10 tab PRN Reason: Nausea
[2018-02-18] MEDS ORDERED: KETOROLAC 15 MG/1 ML SDV IVP ONE (10:12)
[2018-02-18] MEDS ORDERED: IOPAMIDOL (ISOVUE-300) 100 ML BTL ONE (10:17)
[2018-02-18] MEDS ORDERED: MAG HYDROX/AL HYDROX/SIMETH 30 ML UDCUP PO ONE (12:32)
[2018-02-18] MEDS ORDERED: LIDOCAINE 2% VISCOUS 15 ML UDCUP PO ONE (12:32)
[2018-02-18] MEDS ORDERED: HYOSCYAMINE SULFATE 0.125 MG TAB PO ONE (12:32)
[2018-02-18 12:53] VITALS: BP 105/78
== END 2018-02-18 12:52 | disposition home or self-care (01) ==
DX: E86.9 Volume depletion, unspecified (principal); R11.2 Nausea with vomiting, unspecified
CPT/HCPCS: 96374; J1885; J2405; Q9967